=== PATIENT | female | born 1985 | race Caucasian/White ===

== ENCOUNTER → 2017-08-02 08:09 | Outpatient (CLI) | payer OTHER, SELFPAY | PROVIDERS: PCP Emergency Medicine; Visit Provider Emergency Medicine | DX: R50.9 Fever, unspecified (principal); R05 Cough ==

== ENCOUNTER → 2017-09-17 11:44 | Outpatient (CLI) | payer OTHER, SELFPAY ==
--- NOTE | 2017-09-17 11:45 | CT_ITS ---
CT abdomen pelvis wo con CLINICAL INDICATION: ITS.REASON: left flank pain, hematuria ORDERING PHYSICIAN: SHWETHA Ku PATIENT AGE: 32 years COMPARISON: 12/24/2016 TECHNIQUE: Axial images obtained with sagittal and coronal reformats. All CT scans at the facility use one or more dose reduction, viz: automated exposure control; ma/kV adjustment per patient size (including targeted exams where dose is matched to indication; i.e. head); or iterative reconstruction technique. PROCEDURE: Oral Contrast: None IV Contrast: None . FINDINGS: Lung bases are clear. The liver, gallbladder, spleen and pancreas have an unremarkable unenhanced CT appearance. There are punctate bilateral renal calculi measuring 3 mm in the mid and lower pole on the right and 3 mm in the lower along the left and 2 mm in left upper pole. No hydronephrosis. No ureteral calculi. No evidence of appendicitis or diverticulitis. There are bilateral tubal ligation clips present.. No pelvic mass or abnormal fluid collection or focal inflammatory change. No acute bony anomalies. IMPRESSION: Nonobstructing bilateral renal calculi Otherwise negative CT abdomen pelvis without contrast
== END ==
PROVIDERS: PCP Physician Assistant; Visit Provider Physician Assistant
DX: R10.9 Unspecified abdominal pain (principal)
CPT/HCPCS: 74176

== ENCOUNTER → 2018-01-28 08:09 | Outpatient (POV) | payer OTHER, SELFPAY | PROVIDERS: Visit Provider Dentist | DX: Z00.00 Encounter for general adult medical examination without abnormal findings (principal) ==

== ENCOUNTER → 2019-07-19 10:45 | Outpatient (CLI) | payer OTHER, SELFPAY ==
[2019-07-19 10:48] LABS: Adenovirus,PCR Not Detected (NotDetected); Bordetella Pertussis Not Detected (NotDetected); Chlamydophila Pneumoniae, PCR Not Detected (NotDetected); Coronavirus 229E Not Detected (NotDetected); Coronavirus NL63 Not Detected (NotDetected); Coronavirus OC43 Not Detected (NotDetected); Coronovirus HKU1,PCR Not Detected (NotDetected); Human Metapneumovirus Not Detected (NotDetected); Influenza A, PCR Not Detected (NotDetected); Influenza AH1, 2009 Not Detected (NotDetected); Influenza AH1, PCR Not Detected (NotDetected); Influenza AH3,PCR Not Detected (NotDetected); Influenza B, PCR Not Detected (NotDetected); Mycoplasma Pneumoniae, PCR Not Detected (NotDetected); Parainfluenza 1, PCR Not Detected (NotDetected); Parainfluenza 2, PCR Not Detected (NotDetected); Parainfluenza 3, PCR Not Detected (NotDetected); Parainfluenza 4, PCR Not Detected (NotDetected); Respiratory Syncytial Virus Not Detected (NotDetected); Rhinovirus/Enterovirus Not Detected (NotDetected)
== END ==
PROVIDERS: Visit Provider Internal Medicine Adolescent Medicine
DX: J02.9 Acute pharyngitis, unspecified (principal)
CPT/HCPCS: 87486; 87581; 87633; 87798

== ENCOUNTER → 2019-09-22 16:03 | Outpatient (CLI) | payer OTHER, SELFPAY ==
[2019-09-22 16:06] LABS: Microscopic, Urine URINE MICROSCOPIC (MICROSCOPIC)
[2019-09-22 16:25] LABS: Appearance,Urine CLEAR (Clear); Blood, Urine 2+ (Negative); Color,Urine YELLOW (Yellow); Glucose,Urine (UA) Negative (Negative); Ketones,Urine TRACE (Negative); Leukocyte Esterase,Urine Negative (Negative); Nitrate,Urine Negative (Negative); Protein,Urine Negative (Negative); Specific Gravity, Urine >= 1.030 (1.005-1.030)
[2019-09-22 16:45] LABS: Bilirubin,Urine Negative (Negative)
[2019-09-22 16:46] LABS: Bacteria,Urine Trace /lpf
== END ==
PROVIDERS: Visit Provider Nurse Practitioner
DX: N20.0 Calculus of kidney (principal)
CPT/HCPCS: 81001; 87086

== ENCOUNTER 2019-09-24 16:35 | Emergency (ER) | payer OTHER, SELFPAY ==
[2019-09-24 16:39] VITALS: BP 141/89; PULSE 106; RESP 18; TEMP 37.1; O2SAT 98; BMI 29.0
[2019-09-24 16:53] LABS: Appearance,Urine CLEAR (Clear); Bilirubin,Urine Negative (Negative); Blood, Urine 1+ (Negative); Color,Urine YELLOW (Yellow); Glucose,Urine (UA) Negative (Negative); Ketones,Urine Negative (Negative); Leukocyte Esterase,Urine Negative (Negative); Microscopic, Urine URINE MICROSCOPIC (MICROSCOPIC); Nitrate,Urine Negative (Negative); PH,Urine 6.5 (5.0-8.5); Protein,Urine Negative (Negative)
--- NOTE | 2019-09-24 16:55 | CT_ITS ---
PROCEDURE: CT ABDOMEN PELVIS WO CON CLINICAL INDICATION: R flank pain Right flank pain with nausea COMPARISON: ABDPELWO CT abdomen pelvis wo con from 09/17/2017 TECHNIQUE: Axial images obtained with sagittal and coronal reformats. All CT scans at the facility use one or more dose reduction, viz: automated exposure control, ma/kV adjustment per patient size (including targeted exams where dose is matched to indication, i.e. head), or iterative reconstruction technique. FINDINGS: LOWER THORAX: Small hiatal hernia ABDOMEN & PELVIS: Gallbladder is contracted with thickened wall. Stomach is mildly distended. Heterogeneous contents of the stomach which may be related to ingested products. The spleen, liver, adrenal glands, and pancreas have an unremarkable appearance. There are nonobstructing punctate bilateral renal calculi measuring up to 2-3 mm. No ureteral calculi. No hydronephrosis. No intestinal obstruction or free air. The appendix is not clearly delineated but no obvious signs of appendicitis. Bilateral tubal ligation clips. No pelvic mass or abnormal fluid collection. No acute bony anomaly. There is diastasis rectus IMPRESSION: 1. Nonobstructing bilateral renal calculi 2. Hiatal hernia with mild thickening of the distal esophagus nonspecific Dictated by: Leandro Flowers MD 09/25/2019 10:37 Electronically signed by Leandro Flowers MD in [place] 09/25/2019 10:37
[2019-09-24 17:01] LABS: Amorphous Sediment,Urine 1+ /lpf; WBC,Urine Occasional #/hpf (0-3)
[2019-09-24 17:04] LABS: Basophils % 0.3 % (0.1-2.0); Eosinophils % 0.4 % (0.1-12.0); Lymphocytes # 0.7 K/mm3 (0.7-4.5); Mean Corpuscular HGB Conc 34.1 g/dL (31.8-35.4); Mean Corpuscular Hemoglobin 32.6 pg (27.0-31.2); Mean Corpuscular Volume 95.6 fl (81-99); Monocytes # 0.1 K/mm3 (0.1-1.0); Monocytes % 0.9 % (1.7-9.3); Neutrophils # 9.3 K/mm3 (1.8-7.8); Neutrophils % 91.4 % (37.0-80.0); Platelet Count 246 K/mm3 (142-424); Red Cell Distribution Width 13.1 % (11.5-17.5); White Blood Count 10.2 K/mm3 (4.8-10.8)
[2019-09-24 17:05] LABS: MANUAL DIFFERENTIAL MANUAL DIFFERENTIAL (MANUAL DIFF)
[2019-09-24 17:09] LABS: Alanine Aminotransferase 20 U/L (12-78); Albumin Level 4.9 g/dl (3.5-5.0); Albumin/Globulin Ratio 1.5 (1.1-1.8); Alkaline Phosphatase 78 U/L (38-126); Anion Gap 14.4 mEq/L (5-15); Aspartate Amino Transferase 25 U/L (14-36); Bilirubin,Total 0.3 mg/dl (0.2-1.3); Blood Urea Nitrogen 12 mg/dl (7-17); Calcium 9.4 mg/dl (8.4-10.2); Carbon Dioxide 22 mmol/L (22.0-30.0); Chloride 104 mmol/L (98-107); Creatinine Clearance Estimated 116 mL/min (50-200); Estimated Glomerular Filt Rate 73 ml/min (>60); GFR (African American) 88 ML/MIN (>60); Globulin 3.3 g/dL (1.3-3.2); Glucose 119 mg/dl (74-100); Potassium 4.4 mmoL/L (3.5-5.1); Sodium 136 mmol/L (136-145); Total Protein,Serum 8.2 g/dl (6.3-8.2)
[2019-09-24 17:15] LABS: Lymphocytes % 4 % (10-50); Monocytes % 2 % (2-9); Neutrophils % 94 % (42-76); Platelet Estimate Normal; RBC Morphology Normal; Total Cells Counted 100
[2019-09-24 17:44] VITALS: BP 132/80; PULSE 80; RESP 16; O2SAT 96
[2019-09-24 18:15] VITALS: BP 140/77; PULSE 76; RESP 16; O2SAT 100
--- NOTE | 2019-09-24 18:15 | HMH.EDGENADL ---
ED Disposition Clinical Impression: Nephrolithiasis Disposition: Home, Self-Care Condition on Discharge: Good Instructions: DI for Acute Pain -- Adult Prescriptions: Cefdinir [Omnicef 300mg Capsule] 300 mg PO BID 10 Days #20 cap Transmission Status: Pending to [id number] Oxycodone HCl/Acetaminophen [Percocet 10-325 mg Tablet] 1 tab PO Q4H PRN 3 Days #15 tab PRN Reason: Breakthru Mild Pain Prescription Printed Referrals: Howard Gomez MD [Primary Care Provider] - - Critical Care Critical Care Time: No Attestation: On 09/24/19, the high probability of a clinically significant, sudden or life threatening deterioration of the following system(s) required my full and direct attention, intervention and personal management. The time I documented below is in addition to time spent performing reported procedures but includes the following listed in this critical care notation. Medical Decision Making - Medical Records Medical records reviewed: Yes: I reviewed the patient's medical records. - Jakub Inquiry Pt receiving controlled substance: No Vital Signs: 09/24/19 16:39 09/24/19 17:44 Temperature 98.7 F Temperature Source Oral Pulse Rate [Right Radial] 106 H 80 Respiratory Rate 18 16 Blood Pressure [Right Arm] 141/89 H 132/80 Blood Pressure Mean [Right Arm] 106 97 Blood Pressure Source [Right Arm] Automatic Cuff Automatic Cuff Blood Pressure Position [Right Arm] Sitting Sitting 02 Sat by Pulse Oximetry 98 96 Oxygen Delivery Method Room Air Room Air - Lab Data Lab results reviewed: Yes: I reviewed the patient's lab results. Lab Results 09/24/19 16:40: Urine Color Yellow, Urine Appearance Clear, Urine pH 6.5, Ur Specific [place] 1.020, Urine Protein Negative, Urine Glucose (UA) Negative, Urine Ketones Negative, Urine Blood 1+, Urine Nitrate Negative, Urine Bilirubin Negative, Urine Urobilinogen 2.0, Ur Leukocyte Esterase Negative, Urine RBC 10-20, Urine WBC Occasional, Ur Squamous Epith Cells 10-20, Amorphous Sediment 1+, Urine Bacteria None 09/24/19 16:50: WBC 10.2, RBC 4.60, Hgb 15.0, Hct 44.0, MCV 95.6, MCH 32.6 H, MCHC 34.1, RDW 13.1, Plt Count 246, MPV 8.0, Neut % (Auto) 91.4 H, Lymph % (Auto) 7.0 L, Gage % (Auto) 0.9 L, Eos % (Auto) 0.4, Baso % (Auto) 0.3, Neut # (Auto) 9.3 H, Lymph # (Auto) 0.7, Gage # (Auto) 0.1, Eos # (Auto) 0.0, Baso # (Auto) 0.0, Total Counted 100, Neutrophils % (Manual) 94 H, Lymphocytes % (Manual) 4 L, Monocytes % (Manual) 2, Platelet Estimate Normal, RBC Morphology Normal 09/24/19 16:50: Sodium 136, Potassium 4.4, Chloride 104, Carbon Dioxide 22, Anion Gap 14.4, BUN 12, Creatinine 0.90, Estimated Creat Clear 116, Estimated GFR 73, Est GFR ( Amer) 88, Glucose 119 H, Calcium 9.4, Total Bilirubin 0.3, AST 25, ALT 20, Alkaline Phosphatase 78, Total Protein 8.2, Albumin 4.9, Globulin 3.3 H, Albumin/Globulin Ratio 1.5 Result diagrams: 09/24/19 16:50 09/24/19 16:50 Orders (Tests/Meds): ED MEDICATIONS Generic Name Dose Route Start Last Admin Trade Name Freq PRN Reason Stop Dose Admin Sodium Chloride 1,000 mls @ 999 mls/hr 09/24/19 17:45 09/24/19 17:52 Sod Chlor 0.9% 1000ml Bag IV 09/24/19 18:45 999 mls/hr .Q1H1M GERALDINE Administration Discontinued Medications Generic Name Dose Route Start Last Admin Trade Name Freq PRN Reason Stop Dose Admin Acetaminophen/Codeine Phosphate 1 fam 09/24/19 18:09 Acetaminophen W/Codeine #3 Take Home Pack (6) PO 09/24/19 18:10 ONCE ONE Amlodipine Besylate 5 mg 09/24/19 17:48 09/24/19 17:52 Norvasc 5mg Tablet PO 09/24/19 17:49 5 mg ONCE ONE Administration Hyoscyamine 0.125 mg 09/24/19 17:48 09/24/19 17:52 Levsin 0.125mg Tablet PO 09/24/19 17:49 0.125 mg ONCE ONE Administration ORDERS Category Date Time Status CT abdomen pelvis wo con Stat Cat Scan 09/24/19 16:55 Taken - CT Data CT Scan: Abdomen, Pelvis Time Received: 18:[address] Reviewed: Yes: I have viewe
[2019-09-24 18:43] VITALS: BP 140/77; PULSE 76; RESP 16; TEMP 37.1; O2SAT 100
== END 2019-09-24 18:44 | disposition home or self-care (01) ==
PROVIDERS: Emergency Provider Family Medicine; PCP Internal Medicine Adolescent Medicine
DX: N20.0 Calculus of kidney (principal); F17.210 Nicotine dependence, cigarettes, uncomplicated; Z88.0 Allergy status to penicillin; Z88.2 Allergy status to sulfonamides
CPT/HCPCS: 74176; 80053; 81001; 85007; 85025; 96365; 99284

== ENCOUNTER 2020-01-26 18:35 | Emergency (ER) | payer OTHER, SELFPAY ==
[2020-01-26 18:42] VITALS: BP 141/87; PULSE 115; RESP 17; TEMP 37.1; O2SAT 99; BMI 29.0
--- NOTE | 2020-01-26 18:46 | HMH.EDGENADL ---
ED Disposition Clinical Impression: Trapezius muscle strain Qualifiers: Encounter type: initial encounter Laterality: left Qualified Code(s): S46.812A - Strain of other muscles, fascia and tendons at shoulder and upper arm level, left arm, initial encounter Disposition: Home, Self-Care Condition on Discharge: Good Instructions: DI for Cervical Muscle Strain Prescriptions: Cyclobenzaprine HCl [Flexeril 10mg tablet] 5 mg PO TID PRN #5 tab PRN Reason: spasm Prescription Printed Ketorolac Tromethamine [Toradol 10mg tablet] 10 mg PO Q6H PRN 4 Days #16 tab PRN Reason: pain Prescription Printed Referrals: Howard Gomez MD [Primary Care Provider] - 3 days - Critical Care Critical Care Time: No Attestation: On 01/26/20, the high probability of a clinically significant, sudden or life threatening deterioration of the following system(s) required my full and direct attention, intervention and personal management. The time I documented below is in addition to time spent performing reported procedures but includes the following listed in this critical care notation. Medical Decision Making - Medical Records Medical records reviewed: Yes: I reviewed the patient's medical records. - Jakub Inquiry Pt receiving controlled substance: No Vital Signs: 01/26/20 18:42 Temperature 98.7 F Temperature Source Oral Pulse Rate [Right Radial] 115 H Respiratory Rate 17 Blood Pressure [Right Arm] 141/87 H Blood Pressure Mean [Right Arm] 105 02 Sat by Pulse Oximetry 99 Oxygen Delivery Method Room Air Medical Decision Narrative: Suspect musculoskeletal etiology of her pain. She does not have any meningismus on exam and is afebrile with her last Advil at 1 PM this afternoon. Recommend addition of muscle relaxers to anti-inflammatories. Will prescribe Flexeril and Toradol. No radiculopathy or myelopathy. Encouraged to return for any change in symptoms, persistent headache, fever greater than 100.4. General Adult HPI - General Chief complaint: Ear Stated complaint: Neck pain, low grade fever, vomiting Time Seen by Provider: 01/26/20 18:47 Mode of Arrival: Ambulatory Source of Information: Patient Limitations: No Limitations Description of Symptoms (Recalled from ER Triage Doc. by RN): left ear pain that radiates into her head and her left shoulder. pt denies fever, pt c/o throat pain/burning also. - History of Present Illness HPI narrative: This is a 34-year-old female with no significant past medical history who presents to the emergency department for left-sided neck pain for the last 3 to 4 weeks. She has some pain relief with Advil, but pain returns. She states that whenever she bends her head all the way over to the left she will feel a catch and the pain will shoot down through her trapezius into her ear. She has felt generally uncomfortable and unwell throughout the entire month of December. No objective fever, but she did measure her temperature one time at home of 99.3/99.4. No posterior neck pain. No lateralizing motor or sensory changes. No trauma to the neck. - Related Data Previous Rx's Medication Instructions Recorded predniSONE [Prednisone 20mg 20 mg PO BID 5 Days #10 tab 08/16/17 Tab] fluticasone propionate 50 1 spray INTRANASAL BID #47.4 g 11/06/17 mcg/actuation nasal spray,suspension Cefdinir [Omnicef 300mg Capsule] 300 mg PO BID 10 Days #20 cap 09/24/19 Oxycodone HCl/Acetaminophen 1 tab PO Q4H PRN 3 Days #15 tab 09/24/19 [Percocet 10-325 mg Tablet] Cyclobenzaprine HCl [Flexeril 10mg 5 mg PO TID PRN #5 tab 01/26/20 tablet] Ketorolac Tromethamine [Toradol 10 mg PO Q6H PRN 4 Days #16 tab 01/26/20 10mg tablet] Allergies Allergy/AdvReac Type Severity Reaction Status Date / Time albuterol [From VENTOLIN HFA] Allergy Unknown -- Verified 01/26/20 18:46 Penicillins [PENICILLINS] Allergy Unknown -- Verified 01/26/20 18:46 Sulfa (Sulfonamide Allergy Unkn
[2020-01-26 19:53] VITALS: BP 119/73; PULSE 78; RESP 16; TEMP 37.2; O2SAT 98
== END 2020-01-26 19:56 | disposition home or self-care (01) ==
PROVIDERS: Emergency Provider Emergency Medicine; PCP Internal Medicine Adolescent Medicine
DX: S46.812A Strain of other muscles, fascia and tendons at shoulder and upper arm level, left arm, initial encounter (principal)
CPT/HCPCS: 99281

== ENCOUNTER → 2020-02-09 18:01 | Outpatient (CLI) | payer OTHER, SELFPAY ==
[2020-02-09 19:49] LABS: T4 (Thyroxine) 14.4 ug/dl (5.53-11.0)
[2020-02-09 20:03] LABS: Thyroid Stimulating Hormone 0.29 uIU/mL (0.465-4.68)
== END ==
PROVIDERS: Visit Provider Nurse Practitioner Family
DX: R53.83 Other fatigue (principal)
CPT/HCPCS: 84436; 84443

== ENCOUNTER → 2020-02-10 07:05 | Outpatient (CLI) | payer OTHER, SELFPAY ==
--- NOTE | 2020-02-10 07:05 | CT_ITS ---
PROCEDURE: CT SOFT TISSUE NECK WO CON CLINICAL HISTORY: neck pain, difficulty swallowing COMPARISON: No exams were available for comparison TECHNIQUE: Oral Contrast: None IV Contrast: None Axial images obtained with sagittal and coronal reformats. All CT scans at the facility use one or more dose reduction, viz: automated exposure control, ma/kV adjustment per patient size (including targeted exams where dose is matched to indication, i.e. head), or iterative reconstruction technique. FINDINGS: There is a 17 mm retention cyst in the floor the right maxillary sinus. Soft tissue evaluation is limited without IV contrast. The nasopharynx has an unremarkable appearance. There is slight asymmetric soft tissue prominence in the left oropharynx region. There is also some increased soft tissue prominence in the right piriform sinus. These areas could be related to nondistention. Direct visualization may confirm. The glottic region and subglottic area have an unremarkable appearance. There is some asymmetric prominence of the thyroid gland on the left. There are few scattered small cervical lymph nodes with no dominant adenopathy evident. Lung apices show no acute finding. Calcified granuloma is present in the left apex IMPRESSION: 1. Somewhat limited evaluation without IV contrast with slight increased soft tissue density in the left oral pharyngeal region and right hypo pharyngeal area possibly related to nondistention. Direct visualization and repeat exam with IV contrast with phonation may confirm. 2. Mild nodular contour of the lower pole left lobe of the thyroid gland which may be better evaluated with ultrasound if clinically warranted. Dictated by: Leandro Flowers MD 02/11/2020 11:06 Leandro Flowers MD in [place] 02/11/2020 11:06
== END ==
LOC: RAD 07:05
PROVIDERS: PCP Nurse Practitioner Family; Visit Provider Nurse Practitioner Family
DX: M54.2 Cervicalgia (principal)
CPT/HCPCS: 70490

== ENCOUNTER → 2020-02-11 10:15 | Outpatient (CLI) | payer OTHER, SELFPAY ==
[2020-02-12 15:06] LABS: Thyroid Peroxidase Antibodies 10 IU/mL (0-34)
== END ==
PROVIDERS: Visit Provider Nurse Practitioner Family
DX: R79.89 Other specified abnormal findings of blood chemistry (principal)
CPT/HCPCS: 86376

== ENCOUNTER → 2020-02-17 07:58 | Outpatient (CLI) | payer OTHER, SELFPAY ==
--- NOTE | 2020-02-17 07:58 | US_ITS ---
PROCEDURE: US THYROID CLINICAL INDICATION: THYROID NODULE COMPARISON: CT CT SOFT TISSUE NECK WO CON from 02/10/2020 FINDINGS: Right lobe: The right lobe measures 1.7 x 4.7 x 2.0 cm. There is homogeneous echogenicity of the right lobe. There is a slightly hypoechoic the structure just posterior to the lower right lobe of the thyroid measuring 2 cm in length superior to inferior dimension and showing homogeneous echogenicity and likely representing the right parathyroid gland. Left lobe: The left lobe measures 1.6 x 5.0 x 1.9 cm in shows homogeneous echogenicity except for a tiny hypoechoic lesion upper pole too small to definitely characterize but probably a small cyst measuring 0.4 by 0.3 x 0.2 cm. Isthmus: The isthmus is thickened measuring 0.7 cm. It shows homogeneous echogenicity however. Additional findings: IMPRESSION: Mild diffuse goiter with probable normal right parathyroid gland as described Dictated by: Dr. Ras Olivo MD 02/17/2020 10:35 Dr. Ras Olivo MD in [place] 02/17/2020 10:35
--- NOTE | 2020-02-17 07:58 | FL_ITS ---
PROCEDURE: FL BARIUM SWALLOW CLINICAL INDICATION: DYSPHAGIA, sensation of not in her throat, recent CT scan showing possible nodule in thyroid gland COMPARISON: No exams were available for comparison TECHNIQUE: In the upright position the patient was observed to swallow barium in both the AP and lateral view. The cervical esophagus was examined under fluoroscopy with images obtained. The patient was then placed prone in the right anterior oblique position and was observed to swallow barium with Valsalva technique . FLUOROSCOPY TIME: 1 minutes 44 seconds FINDINGS: The swallowing function and soft motility appear normal. Spot films of the cervical esophagus show no abnormality. There is a small to moderate size sliding hiatal hernia but there is no GE reflux seen during the study. IMPRESSION: Hiatal hernia is noted, normal appearing cervical esophagus Dictated by: Dr. Ras Olivo MD 02/17/2020 10:27 Dr. Ras Olivo MD in [place] 02/17/2020 10:27
== END ==
PROVIDERS: PCP Nurse Practitioner Family; Visit Provider Otolaryngology
DX: R13.10 Dysphagia, unspecified (principal); E04.1 Nontoxic single thyroid nodule
CPT/HCPCS: 74220; 76536

== ENCOUNTER → 2020-02-27 13:03 | Outpatient (CLI) | payer OTHER, SELFPAY ==
--- NOTE | 2020-02-27 13:04 | CT_ITS ---
PROCEDURE: CT SOFT TISSUE NECK WO/W CON CLINICAL HISTORY: dysphagia no palpable areas 75ml iso 370 COMPARISON: CT CT SOFT TISSUE NECK WO CON from 02/10/2020 US US THYROID from 02/17/2020 TECHNIQUE: Oral Contrast: None IV Contrast: None Axial images obtained with sagittal and coronal reformats. All CT scans at the facility use one or more dose reduction, viz: automated exposure control, ma/kV adjustment per patient size (including targeted exams where dose is matched to indication, i.e. head), or iterative reconstruction technique. FINDINGS: The nasopharyngeal region has an unremarkable appearance. The oropharynx and hypopharynx appear unremarkable. The epiglottis and glottic region is unremarkable. There is mild enlargement of the thyroid gland on both sides. No dominant nodule. The salivary glands have an unremarkable appearance. Scattered small nodes are present in the neck. No dominant adenopathy or abscess apparent. Lung apices are clear. No acute bony findings. IMPRESSION: Mildly enlarged thyroid gland otherwise negative CT of the neck without and with contrast Dictated by: Leandro Flowers MD 03/01/2020 12:25 Leandro Flowers MD in [place] 03/01/2020 12:25
== END ==
LOC: RAD 13:04
PROVIDERS: PCP Nurse Practitioner Family; Visit Provider Otolaryngology
DX: E04.9 Nontoxic goiter, unspecified (principal); R13.10 Dysphagia, unspecified
CPT/HCPCS: 70492; Q9967

== ENCOUNTER → 2020-07-29 08:01 | Outpatient (CLI) | payer OTHER, SELFPAY | PROVIDERS: PCP Internal Medicine Adolescent Medicine; Visit Provider Internal Medicine Adolescent Medicine | DX: Z20.822 Contact with and (suspected) exposure to COVID-19 (principal) | CPT/HCPCS: U0003 ==

== ENCOUNTER → 2020-08-30 10:49 | Outpatient (CLI) | payer OTHER, SELFPAY ==
[2020-08-30 10:54] VITALS: BMI 21.9
--- NOTE | 2020-08-30 10:55 | CA_ITS ---
APPROVED REPORT Bilateral Lower Extremity Venous Study for Credit Department Manager: SHAHEEN/AURELIA Indications SWELLING LEFT LEG with pain x 2 weeks Vein Imaging CFV (L): compressive, spontaneous, phasic, augmentation SFJ (L): compressive, spontaneous, phasic, augmentation FEM (L): compressive, spontaneous, phasic, augmentation POP (L): compressive, spontaneous, phasic, augmentation DFV (L): compressive, spontaneous, phasic, augmentation PTV (L): compressive, spontaneous, phasic, augmentation GSV (L): compressive, spontaneous, phasic, augmentation SSV (L): compressive, spontaneous, phasic, augmentation Peroneals (L):compressive, spontaneous, phasic, augmentation GAS (L): compressive, spontaneous, phasic, augmentation Findings Color flow duplex demonstrates no evidence of DVT of the following left lower extremity Veins:Common Femoral Vein, Femoral Vein, Popliteal Vein, Posterior Tibial Veins, Peroneal Veins. Negative for DVT. Conclusion Negative for DVT. Electronically signed by : Leandro Flowers MD 08/30/2020 15:16:07
== END ==
PROVIDERS: PCP Nurse Practitioner Family; Visit Provider Nurse Practitioner Family
DX: M79.662 Pain in left lower leg (principal); R60.0 Localized edema
CPT/HCPCS: 93971

== ENCOUNTER → 2020-11-02 14:07 | Outpatient (CLI) | payer OTHER, SELFPAY ==
[2020-11-02 15:21] LABS: Barbiturates Screen,Urine Negative ng/ml (<200)
[2020-11-02 15:22] LABS: Benzodiazepines Screen,Urine Negative ng/ml (<200)
[2020-11-02 15:23] LABS: Amphetamine/Metha Screen,Urine Negative ng/ml (<1000); Cannabinoid Screen,Urine Negative ng/ml (<50)
[2020-11-02 15:24] LABS: Cocaine Screen,Urine Negative ng/ml (<300)
[2020-11-02 15:25] LABS: Methadone Screen,Urine Negative ng/ml (<300); Opiate Screen,Urine Negative ng/ml (<300)
[2020-11-02 15:26] LABS: Phencyclidine Screen,Urine Negative ng/ml (<25)
== END ==
PROVIDERS: Visit Provider Nurse Practitioner Family
DX: Z02.83 Encounter for blood-alcohol and blood-drug test (principal)
CPT/HCPCS: 80305

== ENCOUNTER → 2022-01-24 11:52 | Outpatient (CLI) | payer BC, SELFPAY ==
[2022-01-24 13:19] LABS: Free T4 (Free Thyroxine) 1.08 ng/dl (0.78-2.19)
[2022-01-24 13:33] LABS: Thyroid Stimulating Hormone 0.77 uIU/mL (0.465-4.68)
== END ==
PROVIDERS: PCP Nurse Practitioner Family; Visit Provider Otolaryngology
DX: E05.90 Thyrotoxicosis, unspecified without thyrotoxic crisis or storm (principal); K21.9 Gastro-esophageal reflux disease without esophagitis; Q31.8 Other congenital malformations of larynx
CPT/HCPCS: 36415; 84439; 84443

== ENCOUNTER → 2022-01-24 12:07 | Outpatient (CLI) | payer BC, SELFPAY ==
--- NOTE | 2022-01-24 12:07 | US_ITS ---
FINAL REPORT CLINICAL HISTORY: thyroid abnormal, enlarged COMPARISON: 02/17/2020 FINDINGS: The thyroid is enlarged. The right lobe of the thyroid measures 5.4 x 2.2 x 1.8 cm. The left lobe of the thyroid measures 5.5 by 1.5 x 1.7 cm. There is a cyst in the left thyroid lobe measuring 3 x 2 x 3 mm consistent with TI-RADS category 1. There is a hypoechoic mass posterior to the right thyroid lobe measuring 21 x 9 x 12 mm, may represent an enlarged parathyroid. This was present on the prior. No significant changes identified. IMPRESSION: Left thyroid lobe cyst consistent with TI-RADS category 1. Findings may represent an enlarged parathyroid, not significantly changed since prior. Reviewed, Interpreted and Dictated by Samuel Hernandez III, MD Transcribed by Abida Santiago Authenticated and [facility]
== END ==
LOC: RAD 12:07
PROVIDERS: PCP Nurse Practitioner Family; Visit Provider Otolaryngology
DX: E05.90 Thyrotoxicosis, unspecified without thyrotoxic crisis or storm (principal)
CPT/HCPCS: 76536

== ENCOUNTER → 2022-06-30 07:38 | Outpatient (CLI) | payer OTHER, SELFPAY ==
--- NOTE | 2022-06-30 07:38 | US_ITS ---
FINAL REPORT CLINICAL HISTORY: RUQ pain FINDINGS: Sonographic images of the right upper quadrant were obtained. The pancreas is normal. The liver has an unremarkable appearance. There is a large gallstone in the gallbladder. There is no evidence of biliary ductal dilatation.The common duct measures 3 mm. Limited images of the right kidney are unremarkable. IMPRESSION: Large gallstone, otherwise unremarkable exam. Reviewed, Interpreted and Dictated by Samuel Hernandez III, MD Transcribed by Rosa Jacobs Authenticated and . [facility]
== END ==
PROVIDERS: PCP Nurse Practitioner Family; Visit Provider Surgery
DX: R10.11 Right upper quadrant pain (principal)
CPT/HCPCS: 76705

== ENCOUNTER 2022-07-04 06:22 | Day surgery (SDC) | payer OTHER, SELFPAY ==
[2022-07-02 17:09] VITALS: BMI 26.9
[2022-07-04 07:17] VITALS: BP 148/80; PULSE 89; RESP 17; TEMP 36.9; O2SAT 99
[2022-07-04 07:20] LABS: Urine Pregnancy, HCG Qual. Negative (Negative)
--- NOTE | 2022-07-04 07:26 | EXP.ANES.CKL ---
[facility] Disclaimer: The information contained in this section may have been updated after the patient was seen, as this information can be updated by other users. Medical History Arytenoid anomaly Enlarged thyroid GERD (gastroesophageal reflux disease) Hyperthyroidism Obesity Surgical History History of delivery Family History Other Cancer Coronary artery disease Social History Smoking Status: Current every day smoker tobacco type: cigarettes packs per day: 1 alcohol intake: never substance use type: denies use current occupational status: employed Travel in the last 8 weeks: None household members: family housing: house [facility] Anesthesia Checklist Patient Identification Patient Identification: Arm Band and Verbal (Name & ) Structural Data Admitted From: Home Planned Operative Procedure/s: EGD Consent for Planned Operative Procedure(s) Verified: Yes NPO Status Verified Time NPO: 00:00 Chart Verification Results Verified: HCG Airway Assessment C-Spine Mobility Assessed: Yes TMJ Mobility Assessed: Yes Dentition: Good Dentition Neurological Assessment Level of Consciousness: Awake Hx Seizures: No Numbness or tingling in extremities: No Anesthesia Plan Anesthesia Risk discussed: Yes Anesthesia Plan: Verified ASA Class: II Anesthesia Type: MAC
[2022-07-04 07:36] VITALS: O2SAT 99
--- NOTE | 2022-07-04 07:52 | HMH.SCOPE ---
Procedure: Date: 07/04/22 Patient Date of :: 1985 Procedure Performed:: Esophagogastroduodenoscopy with biopsy Indications:: Patient is a 37-year-old female referred for possible upper endoscopy.? She has a relatively longstanding history of symptoms of probable acid reflux.? She did previously undergo a barium swallow on 02/17/2020 which revealed hiatal hernia with a normal-appearing cervical esophagus.? She has seen ENT for some cervical dysphagia type symptoms.? Patient states that she had COVID in March of this year and had developed some significant upper abdominal pain during that time.? She had been on Nexium.? In February 2022 she had COVID once again and once again had developed some significant epigastric and bilateral upper quadrant pain.? This required increasing to high-dose omeprazole along with famotidine.? She does have some right-sided, right upper quadrant, discomfort.? There is some nausea.? She had an episode where she had drank some coffee with creamer and had severe pain.? Given the previous imaging finding showing hiatal hernia it was felt that possible endoscopy would be warranted prior to consideration for potential antireflux surgery.? Patient does not necessarily desire any antireflux procedure.? She had not had her gallbladder evaluated. Given her prior imaging and symptoms I planned to proceed with EGD with biopsies. I did order a gallbladder ultrasound in the interim. This reveals large gallstone . I reviewed the images. This measures 1.2 cm. Performing Provider:: Samuel Hardin MD Referring Provider:: Arti Fitzgerald Sedation:: MAC sedation Procedure:: Patient was taken to endoscopy procedure room. She was positioned in lateral decubitus position. Adequate intravenous sedation was achieved with anesthesia titration of propofol. Olympus endoscope was inserted via the oropharynx. She had some minor cricopharyngeal spasm. Esophagus overall appeared relatively unremarkable. Gastroesophageal junction was encountered at approximately 35 cm. Stomach was cannulated and insufflated. There was mild gastropathy. Retroflexion revealed moderate hiatal hernia measuring about 5 or 6 cm. Pylorus was traversed. Duodenum appeared unremarkable. Endoscope was withdrawn into the gastric lumen and gastric biopsy was obtained. There were a couple of likely fundic gland polyps which were biopsied. A couple of biopsies were obtained at the gastroesophageal junction and a biopsy was obtained mid and distal esophagus. Findings:: Gastroesophageal junction at 35 cm Moderate sliding hiatal hernia (5 to 6 cm) Fundic gland polyps Diffuse mild nonerosive gastropathy Recommendations:: Patient likely does have some degree of reflux symptoms secondary to hiatal hernia however her symptoms of appreciable epigastric and right upper quadrant pain with some nausea may be attributed to her gallstone. I will have her return to the office to follow-up on the biopsy results. May need cholecystectomy. Complications:: None immediately apparent Estimated blood obtained (mL): 1
[2022-07-04 07:54] VITALS: BP 90/51; PULSE 82; RESP 18; TEMP 36.3; O2SAT 96
[2022-07-04 08:04] VITALS: BP 90/54; PULSE 79; RESP 16; O2SAT 96
[2022-07-04 08:14] VITALS: BP 101/63; PULSE 71; RESP 16; O2SAT 97
[2022-07-04 08:24] VITALS: BP 105/64; PULSE 73; RESP 17; O2SAT 97
== END 2022-07-04 08:44 | disposition home or self-care (01) ==
PROVIDERS: PCP Nurse Practitioner Family; Visit Provider Surgery
PROC: 0DJ08ZZ Inspection of Upper Intestinal Tract, Via Natural or Artificial Opening Endoscopic (ICD-10-PCS; CPT 43235; principal; 2022-07-04 07:30)
DX: R10.13 Epigastric pain (principal); K21.9 Gastro-esophageal reflux disease without esophagitis; K31.7 Polyp of stomach and duodenum; K44.9 Diaphragmatic hernia without obstruction or gangrene; K31.9 Disease of stomach and duodenum, unspecified; F17.210 Nicotine dependence, cigarettes, uncomplicated
CPT/HCPCS: 43239; 81025; J2704

== ENCOUNTER → 2022-07-18 14:02 | Outpatient (CLI) | payer OTHER, SELFPAY ==
--- NOTE | 2022-07-18 14:21 | XR_ITS ---
FINAL REPORT CLINICAL HISTORY: CERVICALGIA FINDINGS: CERVICAL SPINE 5 views were obtained. There is no acute fracture. There is straightening of the normal cervical curvature which could be due to positioning or muscle spasm. The disc spaces are preserved. There is no soft tissue abnormality. IMPRESSION: No acute bony abnormality. Straightening of the normal cervical curvature which could be due to positioning or muscle spasm. Reviewed, Interpreted and Dictated by Samuel Hernandez III, MD Transcribed by Vera Robles Authenticated and [facility]
== END ==
PROVIDERS: PCP Nurse Practitioner Family; Visit Provider Nurse Practitioner Family
DX: M54.2 Cervicalgia (principal)
CPT/HCPCS: 72050

== ENCOUNTER → 2022-10-10 14:26 | Outpatient (CLI) | payer OTHER, SELFPAY ==
--- NOTE | 2022-10-10 14:30 | CT_ITS ---
FINAL REPORT TECHNIQUE: Thin section axial images were obtained from the lung bases to the pubic symphysis without IV contrast. Coronal reconstruction images were obtained from the axial data. Exam was performed using dose reduction technique. CLINICAL HISTORY: ACUTE UTI, KIDNEY STONES COMPARISON: 09/24/2019 FINDINGS: Bilateral nonobstructing renal stones are present, the largest on the left side measuring 3 mm in diameter, and on the right side 5 mm in diameter. The appearance is unchanged since the prior CT of 2019. There is no evidence of an obstructing stone, and no hydronephrosis is present. The gallbladder is present. The liver is mildly enlarged without evidence of a focal lesion. There is no evidence of small bowel obstruction. The appendix is not visualized, but there are no secondary signs of appendicitis. GI tract is without acute abnormality. There is no lymphadenopathy or ascites. No acute osseous abnormality is identified. IMPRESSION: Multiple bilateral renal stones, nonobstructing, are present and stable since the prior CT of 2019. No evidence of ureteral obstruction or hydronephrosis is seen. The liver is mildly enlarged without evidence of a focal lesion. Reviewed, Interpreted and Dictated by Isabella Coelho MD Transcribed by Sloane Brand Authenticated and [facility]
== END ==
LOC: RAD 14:26
PROVIDERS: PCP Nurse Practitioner Family; Visit Provider Nurse Practitioner Family
DX: N30.91 Cystitis, unspecified with hematuria (principal); N39.0 Urinary tract infection, site not specified
CPT/HCPCS: 74176

== ENCOUNTER → 2022-10-21 09:35 | Outpatient (CLI) | payer OTHER, SELFPAY ==
[2022-10-21 10:15] LABS: Urine Pregnancy, HCG Qual. Negative (Negative)
[2022-10-21 10:19] LABS: Basophils % 0.6 % (0.1-2.0); Eosinophils % 0.4 % (0.1-12.0); Hematocrit 41.5 % (37.0-47.0); Hemoglobin 12.9 g/dL (12.2-16.2); Lymphocytes # 1.7 K/mm3 (0.7-4.5); Lymphocytes % 24.3 % (10-50); Mean Corpuscular HGB Conc 31.1 g/dL (31.8-35.4); Mean Corpuscular Hemoglobin 29.8 pg (27.0-31.2); Mean Corpuscular Volume 95.5 fl (81-99); Mean Platelet Volume 8.1 fl (7.4-10.4); Monocytes # 0.3 K/mm3 (0.1-1.0); Neutrophils # 4.8 K/mm3 (1.8-7.8); Neutrophils % 70.6 % (37.0-80.0); Platelet Count 244 K/mm3 (142-424); Red Blood Count 4.34 M/mm3 (4.20-5.40); Red Cell Distribution Width 12.6 % (11.5-17.5); White Blood Count 6.8 K/mm3 (4.8-10.8)
[2022-10-21 10:27] LABS: Alanine Aminotransferase 27 U/L (12-78); Albumin Level 4.3 g/dl (3.5-5.0); Albumin/Globulin Ratio 1.6 (1.1-1.8); Alkaline Phosphatase 76 U/L (38-126); Aspartate Amino Transferase 27 U/L (14-36); Bilirubin,Total 0.4 mg/dl (0.2-1.3); Blood Urea Nitrogen 11 mg/dl (7-17); Carbon Dioxide 27 mmol/L (22.0-30.0); Chloride 109 mmol/L (98-107); Estimated Glomerular Filt Rate 95 ml/min (>60); GFR (African American) 115 ML/MIN (>60); Globulin 2.7 g/dL (1.3-3.2); Glucose 86 mg/dl (74-100); Sodium 142 mmol/L (136-145)
== END ==
PROVIDERS: PCP Nurse Practitioner Family; Visit Provider Surgery
DX: Z01.812 Encounter for preprocedural laboratory examination (principal); K80.20 Calculus of gallbladder without cholecystitis without obstruction
CPT/HCPCS: 36415; 80053; 81025; 85025

== ENCOUNTER 2022-10-27 06:09 | Day surgery (SDC) | payer OTHER, SELFPAY ==
[2022-10-23 14:04] VITALS: BMI 26.6
[2022-10-27] VITALS (12 sets, daily range): BP systolic 117–146; BP diastolic 74–87; PULSE 60–94; RESP 14–20; TEMP 36.4–43; O2SAT 98–100
--- NOTE | 2022-10-27 07:14 | EXP.GEN.HP ---
HPI HPI HPI: Patient presents for cholecystectomy. She has a relatively longstanding history of symptoms of probable acid reflux. She did previously undergo a barium swallow on 02/17/2020 which revealed hiatal hernia with a normal-appearing cervical esophagus.? She has seen ENT for some cervical dysphagia type symptoms.? She states that she is dependent on proton pump inhibitors to control her reflux symptoms. She had some significant upper abdominal pain earlier this year.? She had been on Nexium.? She describes some significant epigastric and bilateral upper quadrant pain.? This required increasing to high-dose omeprazole along with famotidine.? She does have some right-sided, right upper quadrant, discomfort.? There is some nausea.? She had an episode where she had drank some coffee with creamer and had severe pain.? Given the previous imaging finding showing hiatal hernia it was felt that possible endoscopy would be warranted prior to consideration for potential antireflux surgery.? She had not had her gallbladder evaluated initially at the time of my initial consultation for EGD.? Given her prior imaging and symptoms I planned to proceed with EGD with biopsies.? I did order a gallbladder ultrasound in the interim.? This revealed large gallstone .? I reviewed the images.? This measures 1.2 cm. She underwent upper endoscopy on 07/04/2022 and she was found to have gastroesophageal junction at 35 cm, small to moderate hiatal hernia, fundic gland polyps and some mild nonerosive gastropathy. Gastric biopsy revealed benign gastric mucosa, gastric polyp was consistent with fundic gland polyp on pathology, GE junction biopsy negative for intestinal metaplasia, distal esophageal biopsy benign normal squamous mucosa. I felt that it was possible that some of her symptoms were secondary to gallbladder as well as hiatal hernia. She was evaluated by Dr. Farrukh Tovar at [facility] for possible antireflux procedure. He did a repeat EGD on 09/12/2022 and she was noted to have a sliding type I paraesophageal hernia. She states that her was informed that she would not require surgery on the hiatal hernia. However, she had been scheduled for esophageal functional testing as well as gastric emptying scan. She states that after her endoscopy she had severe abdominal pain and diarrhea. She has had symptoms of ongoing postprandial bloating and belching. [facility] Disclaimer: The information contained in this section may have been updated after the patient was seen, as this information can be updated by other users. Medical History Arytenoid anomaly Enlarged thyroid GERD (gastroesophageal reflux disease) Hx of renal calculi Hyperthyroidism Obesity Surgical History History of delivery History of esophagogastroduodenoscopy (EGD) History of renal stent History of wisdom tooth extraction, class IV edentulism Family History Other Cancer Coronary artery disease Social History (Updated 10/27/22 @ 06:35 by Beatriz Navarro RN) Smoking Status: Former smoker quit date: 05/23/22 alcohol intake: never substance use type: denies use current occupational status: employed Travel in the last 8 weeks: None household members: family housing: house lives independently: No marital status: education level: high school service: No mcc: No caffeine: No special rocio needs: No agree to transfusion: No do you feel safe at home: Yes victim of physical abuse: No victim of emotional abuse: No victim of sexual abuse: No would you like helpful sources: No Review of Systems Review of Systems Review of systems:: pertinent systems reviewed and negative unless documented below Meds Home Medications and Allergies Home M
--- NOTE | 2022-10-27 07:32 | P.PNANES_ITS ---
[facility] Disclaimer: The information contained in this section may have been updated after the patient was seen, as this information can be updated by other users. Medical History Arytenoid anomaly Enlarged thyroid GERD (gastroesophageal reflux disease) Hx of renal calculi Hyperthyroidism Obesity Surgical History History of delivery History of esophagogastroduodenoscopy (EGD) History of renal stent History of wisdom tooth extraction, class IV edentulism Family History Other Cancer Coronary artery disease Social History (Updated 10/27/22 @ 06:35 by Beatriz Navarro RN) Smoking Status: Former smoker quit date: 05/23/22 alcohol intake: never substance use type: denies use current occupational status: employed Travel in the last 8 weeks: None household members: family housing: house lives independently: No marital status: education level: high school service: No assisted: No caffeine: No special rocio needs: No agree to transfusion: No do you feel safe at home: Yes victim of physical abuse: No victim of emotional abuse: No victim of sexual abuse: No would you like helpful sources: No [facility] Anesthesia Checklist Patient Identification Patient Identification: Arm Band Structural Data Admitted From: Home Planned Operative Procedure/s: Laparoscopic Cholecystectomy Consent for Planned Operative Procedure(s) Verified: Yes Verified Documents: Surgical Consent and History and Physical NPO Status Verified Time NPO: 00:00 Additional verifications Anesthesia Reactions: No Hx Blood Transfusions: No Blood Transfusion Reaction: No Airway Assessment Mallampati Score:: Class II C-Spine Mobility Assessed: Yes TMJ Mobility Assessed: Yes Dentition: Good Dentition Neurological Assessment Level of Consciousness: Awake and Alert Anesthesia Plan Anesthesia Risk discussed: Yes Anesthesia Plan: Verified ASA Class: I Anesthesia Type: General
--- NOTE | 2022-10-27 08:45 | EXP.OP.NOTE ---
Date of procedure: 10/27/22 Pre-op Diagnosis:: Symptomatic gallstones Post-op Diagnosis:: Same Procedure performed:: Laparoscopic cholecystectomy Surgeon:: Samuel Hardin MD CHAR FILTER OPERATOR:: Yogi Haque Anesthesia: GETRuddy Estimated blood loss (mL): 15 Clinical Note:: Patient presents for cholecystectomy. She has a relatively longstanding history of symptoms of probable acid reflux. She did previously undergo a barium swallow on 02/17/2020 which revealed hiatal hernia with a normal-appearing cervical esophagus.? She has seen ENT for some cervical dysphagia type symptoms.? She states that she is dependent on proton pump inhibitors to control her reflux symptoms. She had some significant upper abdominal pain earlier this year.? She had been on Nexium.? She describes some significant epigastric and bilateral upper quadrant pain.? This required increasing to high-dose omeprazole along with famotidine.? She does have some right-sided, right upper quadrant, discomfort.? There is some nausea.? She had an episode where she had drank some coffee with creamer and had severe pain.? Given the previous imaging finding showing hiatal hernia it was felt that possible endoscopy would be warranted prior to consideration for potential antireflux surgery.? She had not had her gallbladder evaluated initially at the time of my initial consultation for EGD.? Given her prior imaging and symptoms I planned to proceed with EGD with biopsies.? I did order a gallbladder ultrasound in the interim.? This revealed large gallstone .? I reviewed the images.? This measures 1.2 cm. She underwent upper endoscopy on 07/04/2022 and she was found to have gastroesophageal junction at 35 cm, small to moderate hiatal hernia, fundic gland polyps and some mild nonerosive gastropathy. Gastric biopsy revealed benign gastric mucosa, gastric polyp was consistent with fundic gland polyp on pathology, GE junction biopsy negative for intestinal metaplasia, distal esophageal biopsy benign normal squamous mucosa. I felt that it was possible that some of her symptoms were secondary to gallbladder as well as hiatal hernia. She was evaluated by Dr. Farrukh Tovar at [facility] for possible antireflux procedure. He did a repeat EGD on 09/12/2022 and she was noted to have a sliding type I paraesophageal hernia. She states that her was informed that she would not require surgery on the hiatal hernia. However, she had been scheduled for esophageal functional testing as well as gastric emptying scan. She states that after her endoscopy she had severe abdominal pain and diarrhea. She has had symptoms of ongoing postprandial bloating and belching. Patient wished to pursue cholecystectomy. I did discuss the case with Dr. Tovar and he felt it appropriate to proceed with cholecystectomy and if necessary at a later date, in the future, she could still undergo antireflux procedure if needed. Operative findings:: She had a distended gallbladder with omental adhesions. She did have findings of mild hepatomegaly and probable fatty infiltration of the liver. There was a moderate gallstone in the gallbladder. She had findings consistent with beginnings of an umbilical hernia. Operative note:: Patient was taken to the operating room. She was given preoperative intravenous antibiotics. In the operating room she was placed in a supine position. General anesthesia was induced via endotracheal tube. Abdomen was prepped and draped in the standard surgical fashion. Subumbilical skin incision was made and while performing abdominal wall lift Veress needle was inserted. Initially insufflation pressures were appropriate but then there were some elevation of pressures. Veress needle was repositioned. There was good insufflation pressures and flow. 11 mm optical trocar was inserted to the umbilicus. There were findings of beginnings of an umbilical hernia. Laparoscopic surveillance was carried out. She was positioned in rever
--- NOTE | 2022-10-27 08:53 | EXP.ANES.I ---
[facility] Anesthesia Record Part I Anesthesia Record I Intake, IV Amount: 1,300 Hydration:: Adequate Estimated blood loss (mL): 10 Urine output (mL): 0 Blood Products used (#): none Blood Pressure: 145/85 SaO2: 99 Pulse Rate: 94 Airway Patency:: Patent Respiratory Rate: 16 Temperature: 98.3 F Pain scale (0-10): 0 Nausea:: Yes Vomiting:: No Patient is:: Drowsy and Stable Stable to PACU at:: 08:55
--- NOTE | 2022-10-27 13:36 | P.PNANES_ITS ---
[facility] Anesthesia Record Part II Anesthesia Record Part II Discharge Time: 09:35 Destination: Surgical Day Care (OP Surgery) PACU nurse assessment reviewed?: Yes Patient Condition:: Good Anesthesia Complications:: None Swallowing reflex intact?: Yes Airway Patency: Patent Cyanosis?: No Blood Pressure: 143/76 SaO2: 98 Respiratory Rate: 14 Pulse Rate: 68 Temperature: 97.5 F Mental Status: Alert & Oriented Pain level:: 4 Nausea and/or vomitting:: None Intake, IV Amount: 0 Hydration: Adequate
== END 2022-10-27 10:15 | disposition home or self-care (01) ==
PROVIDERS: PCP Nurse Practitioner Family; Visit Provider Surgery
PROC: 0FT44ZZ Resection of Gallbladder, Percutaneous Endoscopic Approach (ICD-10-PCS; CPT 47562; principal; 2022-10-27 07:30)
DX: K80.10 Calculus of gallbladder with chronic cholecystitis without obstruction (principal); K44.9 Diaphragmatic hernia without obstruction or gangrene; R16.0 Hepatomegaly, not elsewhere classified
CPT/HCPCS: 47562; 96374; J2405

== ENCOUNTER 2022-12-21 14:54 | Emergency (ER) | payer OTHER, SELFPAY ==
[2022-12-21 15:05] VITALS: BP 140/82; PULSE 80; RESP 19; TEMP 36.6; O2SAT 100; BMI 27.1
[2022-12-21 15:14] LABS: Coronavirus 19, PCR Not Detected (NotDetected); Influenza A, PCR Not Detected (NotDetected); Influenza B, PCR Not Detected (NotDetected)
--- NOTE | 2022-12-21 15:17 | EXP.UTC ---
Discharge Plan Disposition Patient Disposition: Home, Self-Care Condition: Good Prescriptions Prescriptions: New ondansetron 4 mg Tablet,Disintegrating 4 mg PO Q8H PRN (Reason: Nausea) Qty: 20 0RF No Action loratadine 10 mg tablet 10 mg PO DAILY fluticasone propionate 50 mcg/actuation spray,suspension 2 spray intranasal DAILY famotidine 40 mg tablet 40 mg PO DAILY Qty: 90 3RF zinc acetate 25 mg (zinc) capsule 25 mg PO DAILY L norgest/e.estradiol-e.estrad [Daysee] 0.15 mg-30 mcg (84)/10 mcg (7) tablets,dose pack,3 month 1 tab PO DAILY Qty: 182 4RF omega-3 fatty acids Capsule 500 mg PO DAILY Multi For Her 18 mg iron-600 mcg-80 mcg Tablet 1 tab PO DAILY Azo Cranberry 250 mg Tablet,Chewable 250 mg PO DAILY omeprazole 40 mg capsule,delayed release(DR/EC) 40 mg PO DAILY Referrals Follow up/Referrals: Irvin Fitzgerald APRN [Primary Care Provider] - See instructions Activity Restrictions/Add. Instructions Additional Instructions/Restrictions: *Monitor Temp, Over the counter Motrin or Tylenol as directed/as needed Tylenol every 4 hours and Motrin every 6 hours (as long as your family doctor has told you that you can take it) for fever or pain. and straight to ER if unable to lower temp less than 101.0 after medication given *Warm salt water gargles may help to soothe the throat *Throat Lozenges? *Warm fluids like tea with honey may help to soothe the throat? *Sleep elevated *Humidifier/Vaporizer Follow up IMMEDIATELY for new or worsening symptoms or no Noticeable improvement over the next 48-72 hours. 911 for difficulty breathing or swallowing Clinical Impressions Clinical Impression: Viral syndrome Instructions Patient Instructions: DI for Nausea -- Adult, DI for Viral Syndrome Discharge ED Provider: Ivana Mead [facility] HPI General Stated complaint: fatigue, stomach pain Mode of Arrival: Ambulatory Source of Information: Patient Limitations: No Limitations Time Seen by Provider: 12/21/22 15:19 Description of Symptoms (Recalled from Triage Doc. by RN): PATIENT C/O HEADACHE, NAUSEA, AND FATIGUE X 2 DAYS HEENT Symptoms (Recalled from RN notes): Yes Resp Symptoms (Recalled from RN notes): No Skin Symptoms (Recalled from RN notes): No MS Symptoms (Recalled from RN notes): No Functional Status (Recalled from RN notes): WNL History of Present Illness Provider Complaint: Patient states that she has been having headache, fatigue, nausea States that she feels like she did when she had COVID states that she wanted to get tested for COVID Related Data Home Medications Medication Instructions Recorded Confirmed fluticasone propionate 50 2 spray intranasal DAILY Allergies 12/24/21 12/18/22 mcg/actuation nasal spray,suspension loratadine 10 mg tablet 10 mg PO DAILY Allergies 12/24/21 12/18/22 omeprazole 40 mg capsule,delayed 40 mg PO DAILY GERD 07/02/22 12/18/22 release cranberry fruit concentrate 250 mg 250 mg PO DAILY Supplement 10/23/22 12/18/22 chewable tablet (Azo Cranberry) oczevjpw-zjdoxlc-rhda-iron fum 18 1 tab PO DAILY Supplement 10/23/22 12/18/22 mg-folic 600 mcg-vit K 80 mcg tablet (Multi For Her) omega-3 fatty acids 500 mg PO DAILY Supplement 10/23/22 12/18/22 zinc acetate 25 mg (zinc) capsule 25 mg PO DAILY 12/18/22 12/18/22 Previous Rx's Medication Instructions Recorded famotidine 40 mg tablet 40 mg PO DAILY take before bed #90 01/29/22 tabs L norgest/E estradiol-E estrad 1 tab PO DAILY control #182 12/18/22 0.15 mg-30 mcg (84)/10 mcg(7) tabs tabs,3mos (Daysee) ondansetron 4 mg disintegrating 4 mg PO Q8H PRN Nausea #20 tabs 12/21/22 tablet Allergies Allergy/AdvReac Type Severity Reaction Status Date / Time Penicillins [PENICILLINS] Allergy Unknown -- Verified 12/18/22 10:43 Sulfa (Sulfonamide Allergy Unknown -- Verified 12/18/22 10:43 Antibiotics) [SULFA
[2022-12-21 15:26] VITALS: BP 140/82; PULSE 80; RESP 19; TEMP 36.6; O2SAT 100
== END 2022-12-21 15:50 | disposition home or self-care (01) ==
PROVIDERS: Emergency Provider Nurse Practitioner; PCP Nurse Practitioner Family
DX: R51.9 Headache, unspecified (principal); R11.0 Nausea; R53.83 Other fatigue; B34.9 Viral infection, unspecified; E05.00 Thyrotoxicosis with diffuse goiter without thyrotoxic crisis or storm; K21.9 Gastro-esophageal reflux disease without esophagitis; Z87.891 Personal history of nicotine dependence
CPT/HCPCS: 87636; 99204; 99212; G0463

== ENCOUNTER 2023-09-03 16:49 | Outpatient (CLI) | payer OTHER, SELFPAY ==
[2023-09-03 18:15] LABS: Ferritin 52.6 ng/ml (6.24-137)
== END 2023-09-03 23:59 | disposition home or self-care (01) ==
LOC: LAB 16:49
PROVIDERS: PCP Nurse Practitioner Family; Visit Provider Obstetrics & Gynecology
DX: E34.8 Other specified endocrine disorders (principal)
CPT/HCPCS: 36415; 82728

== ENCOUNTER 2024-01-22 15:55 | Outpatient (CLI) | payer OTHER, SELFPAY ==
--- NOTE | 2024-01-22 15:55 | US_ITS ---
PROCEDURE: US TRANSVAGINAL CLINICAL INDICATION: recurring pelvic pain COMPARISON: CT ABDPELWO CT abdomen pelvis wo con from 09/17/[address] ABDOMEN PELVIS WO CON from 10/10/[address] ABDOMEN PELVIS W CON from 08/23/2023 FINDINGS: Transvaginal sonographic images of the pelvis were obtained. UTERUS: 6.7cm x 4.4cmx 4.2cm midline at the beginning of the examination then became retroverted with a combined endometrial thickness of 4.6mm. A small nabothian cyst is seen within the cervix. LEFT OVARY: 2.1cmx1.5 cmx1.2cm with a volume of 2.1ml. There are multiple small peripheral follicles. RIGHT OVARY: 2.4cmx 1.0cmx1.2cm with a volume of 1.5ml. There are multiple small peripheral follicles. Both ovaries are seen and appear polycystic. Doppler flow to both ovaries are seen. There is no fluid in the cul-de-sac. IMPRESSION: 1. Retroverted uterus normal in shape and size. The endometrium is thin at 4.6 mm. 2. Both ovaries are seen and appear polycystic. 3. No fluid in the cul-de-sac. Dictated by: Hayden Macdonald MD 01/23/2024 08:54 Hayden Macdonald MD in [place] 01/23/2024 08:54
== END 2024-01-22 23:59 | disposition home or self-care (01) ==
LOC: RAD 15:55
PROVIDERS: PCP Obstetrics & Gynecology; Visit Provider Obstetrics & Gynecology
DX: R10.2 Pelvic and perineal pain (principal)
CPT/HCPCS: 76830

== ENCOUNTER 2024-01-27 08:29 | Outpatient (CLI) | payer OTHER, SELFPAY ==
[2024-01-27 09:12] LABS: Basophils # 0.1 K/mm3 (0-0.2); Basophils % 0.7 % (0.1-2.0); Eosinophils # 0.1 K/mm3 (0.0-0.4); Hematocrit 40.7 % (37.0-47.0); Hemoglobin 13.8 g/dL (12.2-16.2); Lymphocytes # 1.7 K/mm3 (0.7-4.5); Mean Corpuscular Hemoglobin 31.7 pg (27.0-31.2); Mean Corpuscular Volume 93.2 fl (81-99); Monocytes # 0.4 K/mm3 (0.1-1.0); Monocytes % 5.3 % (1.7-9.3); Neutrophils # 5.1 K/mm3 (1.8-7.8); Platelet Count 290 K/mm3 (142-424); Red Blood Count 4.36 M/mm3 (4.20-5.40); White Blood Count 7.4 K/mm3 (4.8-10.8)
[2024-01-27 09:41] LABS: Alanine Aminotransferase 21 U/L (12-78); Albumin/Globulin Ratio 1.7 (1.1-1.8); Alkaline Phosphatase 61 U/L (38-126); Anion Gap 12.1 mEq/L (5-15); Aspartate Amino Transferase 21 U/L (14-36); Bilirubin,Total 0.6 mg/dl (0.2-1.3); Blood Urea Nitrogen 14 mg/dl (7-17); Calcium 8.8 mg/dl (8.4-10.2); Carbon Dioxide 23 mmol/L (22.0-30.0); Chloride 109 mmol/L (98-107); Chol/HDL Ratio 4.9 (1-3.5); Cholesterol 187 mg/dl (140-200); Estimated Glomerular Filt Rate 95 ml/min (>60); GFR (African American) 115 ML/MIN (>60); Globulin 2.3 g/dL (1.3-3.2); Glucose 81 mg/dl (74-100); HDL Cholesterol 38 mg/dl (40-60); Potassium 4.1 mmoL/L (3.5-5.1); Sodium 140 mmol/L (136-145); Total Protein,Serum 6.3 g/dl (6.3-8.2); Triglycerides 64 mg/dl (30-150); Uric Acid 5.3 mg/dl (2.5-6.2); VLDL Cholesterol 13 mg/dL (0-40)
[2024-01-27 09:51] LABS: Direct LDL Cholesterol 151.07 mg/dL (100-129)
[2024-01-27 10:10] LABS: Thyroid Stimulating Hormone 0.03 uIU/mL (0.465-4.68)
[2024-01-27 10:29] LABS: Vitamin B12 465 pg/mL (239-931)
[2024-01-27 11:06] LABS: Hemoglobin A1C 4.8 % (4.0-6.0)
[2024-01-27 14:17] LABS: Free Thyroxine Index 3.4 ug/dL (5.93-13.13); T4 (Thyroxine) 13.1 ug/dl (5.53-11.0); Triiodothryronine (T3) Uptake 26 % (23.5-40.5)
[2024-01-27 14:31] LABS: Thyroid Stimulating Hormone 0.03 uIU/mL (0.465-4.68)
[2024-01-28 08:22] LABS: Estradiol 7.1 pg/mL (.); FSH 3.8 mIU/mL (.); LH 2.3 mIU/mL (.); Testosterone,Total 22 ng/dL (8-60)
[2024-01-28 11:16] LABS: Insulin Level Total 11.7 uIU/mL (2.6-24.9)
[2024-02-02 12:29] LABS: Vitamin B6 44.2 ug/L (3.4-65.2)
[2024-02-03 00:01] LABS: Vitamin B1 152.1 nmol/L (66.5-200.0)
[2024-02-09 17:21] LABS: 1,25 Dihydroxy Vitamin D 82 pg/mL (.); 1,25-Dihydroxy, Vitamin D-2 <10 pg/mL (.); 1,25-Dihydroxy, Vitamin D-3 82 pg/mL (.)
== END 2024-01-27 23:59 | disposition home or self-care (01) ==
PROVIDERS: PCP Nurse Practitioner Family; Visit Provider Obstetrics & Gynecology
DX: R10.31 Right lower quadrant pain (principal); Z80.41 Family history of malignant neoplasm of ovary; E05.90 Thyrotoxicosis, unspecified without thyrotoxic crisis or storm; R53.83 Other fatigue
CPT/HCPCS: 36415; 80050; 80053; 80061; 82607; 82652; 82670; 83001; 83002; 83036; 83525; 83735; 84207; 84403; 84425; 84436; 84443; 84479; 84550; 85025; 86850

== ENCOUNTER 2024-02-23 07:48 | Outpatient (CLI) | payer OTHER, SELFPAY ==
--- NOTE | 2024-02-23 07:48 | CT_ITS ---
FINAL REPORT TECHNIQUE: Axial CT images of the abdomen and pelvis were obtained before and after the administration of IV contrast. This study was performed with techniques to keep radiation doses as low as reasonably achievable (ALARA). Individualized dose reduction techniques using automated exposure control or adjustment of mA and/or kV according to the patient''s size were employed. CLINICAL HISTORY: RLQ pain COMPARISON: 08/23/2023 FINDINGS: Abdomen: The lung bases are clear. The heart is normal in size. There is a small hiatal hernia. The liver has an unremarkable appearance, without evidence of mass or biliary duct dilatation. Postcholecystectomy. The spleen is unremarkable. No adrenal masses present. The pancreas has an unremarkable appearance. There are several small nonobstructing renal stones measuring up to 3 mm. There is no hydronephrosis. The aorta is normal in caliber. There is no free fluid or adenopathy. No mass or abnormal fluid collection is seen. Precontrast images demonstrate no evidence of nephrolithiasis. Pelvis: The appendix is not seen but there are no localized inflammatory processes noted in the right lower quadrant. The urinary bladder is unremarkable. No inflammatory process is seen. There is no evidence of mass or adenopathy. There is no evidence of bowel obstruction. IMPRESSION: Small nonobstructing renal stones. Small hiatal hernia. No evidence of appendicitis. Reviewed, Interpreted and Dictated by Samuel Hernandez III, MD Transcribed by Sheree Doyle Authenticated and [facility]
[2024-02-23] MEDS: IOPAMIDOL-370 (76%);100ML BOTTLE 75 ML IV (08:03)
[2024-02-23] MEDS: SODIUM CHLORIDE 0.9% 10ML SYR (RAD ONLY) 10 ML IV (08:03)
== END 2024-02-23 23:59 | disposition home or self-care (01) ==
LOC: RAD 07:48
PROVIDERS: PCP Nurse Practitioner Family; Visit Provider Obstetrics & Gynecology
DX: R10.31 Right lower quadrant pain (principal)
CPT/HCPCS: 74178; Q9967

== ENCOUNTER 2025-02-27 15:26 | Outpatient (CLI) | payer OTHER, SELFPAY ==
--- NOTE | 2025-02-27 15:30 | CT_ITS ---
PROCEDURE INFORMATION: Exam: CT Abdomen And Pelvis Without And With Contrast Exam date and time: 02/27/2025 3:35 PM Age: 39 years old Clinical indication: Abdominal pain; Additional info: Rlq pain TECHNIQUE: Imaging protocol: Computed tomography of the abdomen and pelvis without and with contrast. Radiation optimization: All CT scans at this facility use at least one of these dose optimization techniques: automated exposure control; mA and/or kV adjustment per patient size (includes targeted exams where dose is matched to clinical indication); or iterative reconstruction. Contrast material: ISOVUE; Contrast volume: 75 ml; Contrast route: INTRAVENOUS (IV); COMPARISON: CT ABDOMEN PELVIS WO/W CON 02/23/2024 7:58 AM FINDINGS: Liver: Normal. No mass. Gallbladder and biliary ducts: Gallbladder is absent. Pancreas: Normal. No ductal dilation. Spleen: Normal. No splenomegaly. Adrenal glands: Normal. No mass. Kidneys and ureters: Nonobstructing bilateral nephrolithiasis. Stomach and bowel: Mild nonspecific bowel wall thickening of portions of small bowel and colon. Appendix: The appendix is not clearly identified. There are no secondary findings to suggest acute appendicitis. Intraperitoneal space: Unremarkable. No free air. No significant fluid collection. Vasculature: The arteries demonstrate mild atherosclerotic disease. Lymph nodes: Unremarkable. No enlarged lymph nodes. Urinary bladder: Unremarkable as visualized. Reproductive: Status post bilateral tubal ligation. The left tubal ligation clip has likely migrated. Bones/joints: Unremarkable. No acute fracture. Soft tissues: Unremarkable. Other findings: Stigmata of old granulomatous disease. IMPRESSION: 1. Mild nonspecific bowel wall thickening of portions of small bowel and colon. Please exclude enterocolitis. 2. Nonobstructing bilateral nephrolithiasis. 3. The arteries demonstrate mild atherosclerotic disease. This is advanced for the patient's age.
[2025-02-27] MEDS: SODIUM CHLORIDE 0.9% 10ML SYR (RAD ONLY) 10 ML IV (15:48)
[2025-02-27] MEDS: IOPAMIDOL-370 (76%);100ML BOTTLE 75 ML IV (15:48)
[2025-02-27 17:11] LABS: Hematocrit 41.1 % (37.0-47.0); Hemoglobin 13.6 g/dL (12.2-16.2); Immature Granulocytes % 0.2 %; Mean Corpuscular HGB Conc 33.1 g/dL (31.8-35.4); Mean Corpuscular Hemoglobin 31.1 pg (27.0-31.2); Mean Corpuscular Volume 94.1 fl (81-99); Nucleated Red Blood Cells % 0 %; Platelet Count 306 K/mm3 (142-424); Red Blood Count 4.37 M/mm3 (4.20-5.40); Red Cell Distribution Width-SD 45.1 fL; White Blood Count 9.0 K/mm3 (4.8-10.8)
[2025-02-27 18:09] LABS: Alanine Aminotransferase 20 U/L (12-78); Albumin Level 4.5 g/dl (3.5-5.0); Albumin/Globulin Ratio 1.6 (1.1-1.8); Alkaline Phosphatase 84 U/L (38-126); Anion Gap 19.3 mEq/L (5-15); Aspartate Amino Transferase 22 U/L (14-36); Bilirubin,Total 0.4 mg/dl (0.2-1.3); Blood Urea Nitrogen 9 mg/dl (7-17); Calcium 9.3 mg/dl (8.4-10.2); Carbon Dioxide 23 mmol/L (22.0-30.0); Chloride 104 mmol/L (98-107); Creatinine,Serum 0.80 mg/dl (0.52-1.04); Estimated Glomerular Filt Rate 81 ml/min (>60); GFR (African American) 98 ML/MIN (>60); Globulin 2.8 g/dL (1.3-3.2); Glucose 60 mg/dl (74-100); Potassium 4.3 mmoL/L (3.5-5.1); Sodium 142 mmol/L (136-145); Total Protein,Serum 7.3 g/dl (6.3-8.2)
== END 2025-02-27 23:59 | disposition home or self-care (01) ==
LOC: RAD 15:27
PROVIDERS: PCP Nurse Practitioner Family; Visit Provider Obstetrics & Gynecology
DX: N20.0 Calculus of kidney (principal); K63.89 Other specified diseases of intestine; I70.90 Unspecified atherosclerosis; R10.84 Generalized abdominal pain; R10.20 Pelvic and perineal pain unspecified side
CPT/HCPCS: 74178; 80053; 85025; Q9967

== ENCOUNTER 2025-03-01 07:24 | Outpatient (CLI) | payer OTHER, SELFPAY ==
[2025-03-01 18:32] LABS: Cholesterol 217 mg/dl (140-200); HDL Cholesterol 43 mg/dl (40-60); Triglycerides 96 mg/dl (30-150)
[2025-03-01 18:51] LABS: Free Thyroxine Index 4.0 ug/dL (5.93-13.13); T4 (Thyroxine) 16.0 ug/dl (5.53-11.0); Triiodothryronine (T3) Uptake 25 % (23.5-40.5)
[2025-03-01 19:05] LABS: Thyroid Stimulating Hormone < 0.02 uIU/mL (0.465-4.68)
== END 2025-03-01 23:59 ==
LOC: LAB.DROPOF 03-03 07:25
PROVIDERS: PCP Nurse Practitioner Family; Visit Provider Obstetrics & Gynecology
DX: K21.9 Gastro-esophageal reflux disease without esophagitis (principal); E66.09 Other obesity due to excess calories; E05.90 Thyrotoxicosis, unspecified without thyrotoxic crisis or storm; E04.9 Nontoxic goiter, unspecified
CPT/HCPCS: 80061; 84436; 84439; 84443; 84479

== ENCOUNTER 2025-03-02 08:56 | Outpatient (CLI) | payer OTHER, SELFPAY ==
[2025-03-02 16:11] LABS: Free T4 (Free Thyroxine) 1.30 ng/dl (0.78-2.19)
== END 2025-03-02 23:59 | disposition home or self-care (01) ==
LOC: LAB.DROPOF 03-06 08:57
PROVIDERS: PCP Nurse Practitioner Family; Visit Provider Student in an Organized Health Care Education/Training Program
DX: E05.90 Thyrotoxicosis, unspecified without thyrotoxic crisis or storm (principal)
CPT/HCPCS: 84439

== ENCOUNTER 2025-03-03 13:40 | Outpatient (CLI) | payer OTHER, SELFPAY ==
--- NOTE | 2025-03-03 14:00 | US_ITS ---
FINAL REPORT TECHNIQUE: Sonographic images of the thyroid gland were obtained in the longitudinal and transverse planes. CLINICAL HISTORY: evaluate and treat COMPARISON: 01/24/2022 FINDINGS: The right lobe measures 2.1 x 5.2 x 1.3 cm. Soft tissue along the posterior aspect of the right thyroid lobe is unchanged and is similar in echogenicity to the thyroid itself. This could represent lobulation of the thyroid. Parathyroid lesion not excluded. The left lobe measures 1.8 x 5.5 x 1.7 cm. Mixed cystic and solid 6 mm nodule is slightly larger than on the prior exam, consistent with a TR 3 lesion. The isthmus measures 5 mm. This is normal. IMPRESSION: Appearance of soft tissue along the posterior right thyroid is unchanged and could be related to either lobulated thyroid or parathyroid lesion. Subcentimeter TR 3 left thyroid nodule. Based on size, no current recommendation for follow-up per TI-RADS criteria. Reviewed, Interpreted and Dictated by Isabella Coelho MD Transcribed by Sheree Doyle Authenticated and [facility]
== END 2025-03-03 23:59 | disposition home or self-care (01) ==
LOC: RAD 13:41
PROVIDERS: PCP Nurse Practitioner Family; Visit Provider Obstetrics & Gynecology
DX: E04.1 Nontoxic single thyroid nodule (principal)
CPT/HCPCS: 76536

== ENCOUNTER 2025-03-08 12:30 | Outpatient (CLI) | payer OTHER, SELFPAY ==
[2025-03-08 19:00] LABS: Free T4 (Free Thyroxine) 1.40 ng/dl (0.78-2.19)
[2025-03-08 19:15] LABS: Thyroid Stimulating Hormone 2.51 uIU/mL (0.465-4.68)
--- OUTSIDE RECORDS SUMMARY | 2025-03-09 11:45 | XMS_ITS | Clinical Summary ---
[facility] Organization [facility] Address [address] [place] [address] Care Team Providers Care Data Analytics Chief Scientist Name Role Phone Irvin Fitzgerald APRN Primary Care Provider + [phone] Allergies Active Allergy Reactions Criticality Noted Date Comments Penicillins Hives Medium 08/29/2022 Sulfa Antibiotics Hives Medium 08/29/2022 Medications famotidine (PEPCID) 40 MG tablet Take 1 tablet by mouth Every Night. Active omeprazole (priLOSEC) 40 MG capsule Take 1 capsule by mouth Every Morning. Active Levonorgest-Eth Estrad -Day 0.15-0.03 &0.01 MG tablet Take 1 tablet by mouth Daily. Active Loratadine (Claritin) 10 MG capsule Take 1 capsule by mouth Every Morning. Active fluticasone (FLONASE) 50 MCG/ACT nasal spray 1 spray into the nostril(s) as directed by provider every night at bedtime. Active phentermine (ADIPEX-P) 37.5 MG tablet Take 1 tablet by mouth Every Morning Before Breakfast. Active Multiple Vitamins-Minera ls (HAIR SKIN NAILS PO) Take 3 capsules by mouth Daily. Active Evening [place] Oil 1000 MG capsule Take 1,000 mg by mouth every night at bedtime. Active Wilmer-3 Fatty Acids (Fish Oil Triple Strength) 1400 MG capsule Take 1,400 mg by mouth Daily. Active Social History Tobacco Use Types Packs/Day Years Used Date Smoking Tobacco: Former Cigarettes 0.5 17.2 2 006 - 05/23/2022 Passive Smoke Exposure: Never Smokeless Tobacco: Never Alcohol Use Standard Drinks/Week Comments Never 0 (1 standard drink = 0.6 oz pur e alcohol) Abuse Screen Answer Date Recorded Unsafe at Home or Work/School Not on file Feels Threatened by Someone? Not on file 01/2024 Does Anyone Keep You from Co ntacting Others or Doint Things Outside the Home? Not on file 09/01/2023 Physical Sign of Abuse Present Not on file 0 09/01/2023 Housing Stability Answer Date Recorded Current Living Arrangements Not on file 12/21 Potentially Unsafe Housing Conditions Not on randolph e 01/02/2023 Family and Community Support Answer Nate e Recorded Help with Day-to-Day Activities Not on file 01/02/2023 Lonely or Isolated Not on file 01/02/2023 Employment Answer Date Recorded Do you want help finding or keeping work or a ricardo b? Not on file 01/02/2023 Disabilities Answer Date Recorded Concentrating, Remembering, or Making Decisions Difficulty Not on file 01/02/2023 Doing Errands Independently Difficulty Not on fi le 01/02/2023 Education Answer Date Recorded Help with school or training? Not on file Preferred Language Not on file 01/02/2023 Comments Unknown Sex and Gender Information Value Date Recorded Sex Assigned at Not on file Legal Sex Female 9:24 AM EDT Gender Identity Not on file Sexual Orientation Not on file Last Filed Vital Signs Vital Sign Reading Time Taken Comments Blood Pressure - - Pulse - - Temperature - - Respiratory Rate - - Oxygen Saturation - - Inhaled Oxygen Concentration - - Weight 76.2 kg (168 lb) 08/29/2022 10:19 AM EDT Height 165.1 cm (5' 5 ) 08/29/2022 10:19 AM EDT Body Mass Index 27.96 08/29/2022 10:19 AM EDT Plan of Treatment Health Maintenance Due Date Last Done Comments ANNUAL PHYSICAL 1987 Annual Gynecologic Pelvic and Breast Exam 1987 HEPATITIS C SCREENING 1987 TDAP/TD VACCINES (3 - Td or Tdap) 01/14/2024 01/13/2014, 06/16/2003 INFLUENZA VACCINE 10/21/2024 12/21/2020, , 12/21/2017, Additional history exists Pneumococcal Vaccine 0-49 Aged Out No longer eligible based on patient's age to complete this topic Insurance [address] [place] [id number] [employer] Member Subscriber Plan / Payer (Ef fective 2015-Present) Name:Abebe Maria Relation to Subscriber:Self Name:Abebe Maria Payer ID:[id number] (NAIC) Type:Not on file Address: [place] [id number] Care Teams Data Analytics Chief Scientist Relationship Specialty Start Date End Date Irvin Fitzgerald APRN [address] [place] [address] [place] [id number] PCP - General Family Medicine 09/11/22
--- OUTSIDE RECORDS SUMMARY | 2025-03-09 11:45 | XMS_ITS | Clinical Summary ---
Author Organization [facility] Address [address] [facility] [address] [place] [phone] Phone Care Team Providers Care Supervisor Boat Outfitting Name Role Phone Unavailable Primary Care Provider Unavailabl e Active Problems Problem Noted Date Diagnosed Date Chickenpox 03/19/2011 Overview (03/19/2011): Immunizations Immunization Administration Dates Next Due DTaP 08/01/1993, 8,1987,1987 Hepatitis B, Unspecified Formulation 05/27/2005 HiB, Unspecified Formulation 08/01/1993 IPV 08/01/1993,1987,1987 MMR 10/21/1999,09/09/1988 Td, Unspecified Formulation 06/16/2003 Social History Tobacco Use Types Packs/Day Years Used Date Smoking Tobacco: Never Assessed Comments Unknown Sex and Gender Information Value Date Recorded Sex Assigned at Not on file Legal Sex Female 2:38 PM EDT Gender Identity Not on file Sexual Orientation Not on file Plan of Treatment Health Maintenance Due Date Last Done Comments Annual Wellness Exam 05/28/1990 DTaP/TDaP/Td (5 - Tdap) 06/17/2003 06/16/19 04, 08/01/1993, 1987, Additional history exists Hepatitis B Vaccine (2 of 3 - 3-dose series) 06/24/2005 05/27/2005 COVID-19 Vaccine ( - 2024- season) 2024 Influenza Vaccine (#1) 2024 Meningococcal B Vaccine Aged Out No l onger eligible based on patient's age to complete this topic Pneumococcal Vaccine 0-49 Aged Out No longer eligible based on patient's age to complete this topic
== END 2025-03-08 23:59 | disposition home or self-care (01) ==
LOC: LAB.DROPOF 03-09 10:28
PROVIDERS: PCP Nurse Practitioner Family; Visit Provider Student in an Organized Health Care Education/Training Program
DX: E05.90 Thyrotoxicosis, unspecified without thyrotoxic crisis or storm (principal)
CPT/HCPCS: 84439; 84443

== ENCOUNTER 2025-03-13 07:26 | Outpatient (CLI) | payer SELFPAY ==
--- OUTSIDE RECORDS SUMMARY | 2025-03-13 07:28 | XMS_ITS ---
Author Organization Unknown ENCOUNTERS Encounter Performer Location Date Diagnosis Diagnosis Status Emergency [address] [place] [address] [id number] RENZO Pre Admit [address] [place] [address] [id number] Pre Admit [address] [place] [address] [id number] Emergency [address] [address] [address] [place] [address] [id number] RENZO *Note: Encounters from your own facility or health system may be excluded. Allergies, Adverse Reactions, Alerts Allergen Type Severity Identification Date Sulfa (Sulfonamide Antibiotics) drug allergy 0 [id number] albuterol drug allergy 0 [id number] Penicillins drug allergy 0 [id number] Medications Name Date Quantity Days Supplied GPI Number
--- OUTSIDE RECORDS SUMMARY | 2025-03-13 07:28 | XMS_ITS | Clinical Summary ---
[facility] Address [address] [place] [address] Care Team Providers Care Track Layer Head Name Role Phone Irvin Fitzgerald APRN Primary Care Provider + [phone] Allergies Active Allergy Reactions Criticality Noted Date [...] 3 capsules by mouth Daily. Active Evening [place] Oil 1000 MG capsule Take 1,000 mg by mouth every night at bedtime. Active Avalon-3 Fatty Acids (Fish Oil Triple Strength) 1400 [...] topic Insurance [address] [place] [id number] [employer] Member Subscriber Plan / Payer (Ef fective 2015-Present) Name:Abebe Maria Relation to Subscriber:Self Name:Abebe Maria Payer ID:[id number] (NAIC) Type:Not on file Address: [place] [phone] Care Teams Track Layer Head Relationship Specialty Start Date End Date Irvin Fitzgerald APRN [address] [place] [address] [place] [id number] PCP - General Family Medicine 09/11/22
--- OUTSIDE RECORDS SUMMARY | 2025-03-13 07:29 | XMS_ITS | Clinical Summary ---
Author Organization [facility] Address [address] [facility] [address] [place] [phone] Phone Care Team Providers Care Utility Teller Name Role Phone Unavailable Primary Care Provider [...]
--- OUTSIDE RECORDS SUMMARY | 2025-03-13 07:29 | XMS_ITS | Data Portability ---
Author Organization [facility] Address [address] [place] [address] Care Team Providers Care Director Of Institutional Research Name Role Phone DUNCAN BAR Primary Care Provider Assessment Encounter Date Assessment Date Assessment LastModified by Organization Details LastModified Time 07/05/2024 07/05/2024 Risks, benefits, and alternatives of the medication have been discussed with the patient. She would like to move forward with a prescription of adipex. [email or web address] Not available 07/05/2024 18:01:35 Plan of Treatment Reminders Order Date Submit Date Provider Last Modified By Organization Details Last Modified Time Details Appointments None recorded. Lab None recorded. Referral None recorded. Procedures None recorded. Surgeries None recorded. Imaging None recorded. Medication Orders cyclobenzap rine 5 mg tablet 2024 025 [facility], [address] [place] [address], [id number], 13:27:26 Adipex-P 37.5 mg tablet 2024 025 [facility], [address] [place] [address], [id number], 12:33:10 cyclobenzap rine 5 mg tablet 2024 025 [facility], [address] [place] [address], [id number], 5 18:25:38 Adipex-P 37.5 mg tablet 2024 025 [facility], [address] [place] [address] S, [place], [id number], 5 18:25:43 famotidine 40 mg tablet 2024 025 [facility], [address] [place] [address] S, [place], [id number], 5 17:59:15 omeprazole 40 mg capsule,del ayed release 2024 025 [facility], [address] [place] [address] S, [place], [id number], 5 17:59:18 loratadine 10 mg tablet 2024 025 [facility], [address] [place] [address] S, [place], [id number], 5 17:59:12 Adipex-P 37.5 mg tablet 2024 025 [facility], [address] [place] [address] S, [place], [id number], 5 18:01:26 Adipex-P 37.5 mg tablet 2023 024 [facility], [address] [place] [address] S, [place], [id number], 4 18:07:23 Patient TargetsNo targets recorded. Patient Instructions Encounter Date Encounter Id Patient Instructions Last Modified By Organization Details Last Modified Time 07/05/2024 [id number] Treament Plan: Patient will start medication as directed. Patient will continue exercise, watch calorie intake, and follow up for weight check in 1 month. [email or web address] Not available 07/05/2024 17:30:16 Reason for Referral None Reported. Results Created Date Observation Date Name Description Value Unit Range Abnormal Flag Note LastModifiedBy Organization Detail LastModifiedTime 02/09/20 24 02/09/2024 drug scree n, urine THC negati ve Not Available [address], [address], 02/09/2024 18:05:16 02/09/20 24 02/09/2024 drug scree n, urine TCA negati ve Not Available [address], [address], 02/09/2024 18:05:16 02/09/20 24 02/09/2024 drug scree n, urine BAR negati ve Not Available [address], [address], 02/09/2024 18:05:16 02/09/20 24 02/09/2024 drug scree n, urine BZO negati ve Not Available [address], [address], 02/09/2024 18:05:16 02/09/20 24 02/09/2024 drug scree n, urine MTD negati ve Not Available [address], [address], 02/09/2024 18:05:16 02/09/20 24 02/09/2024 drug scree n, urine AMP negati ve Not Available [address], [address], 02/09/2024 18:05:16 02/09/20 24 02/09/2024 drug scree n, urine MOP negati ve Not Available [address], [address], 02/09/2024 18:05:16 02/09/20 24 02/09/2024 drug scree n, urine OXY negati ve Not Available [address], [address], 02/09/2024 18:05:16 02/09/20 24 02/09/2024 drug scree n, urine MDMA negati ve Not Available [address], [address], 02/09/2024 18:05:16 02/09/20 24 02/09/2024 drug scree n, urine MAC negati ve Not Available [address], [address], 02/09/2024 18:05:16 02/09/20 24 02/09/2024 drug scree n, urine PCP negati ve Not Available [address], [address], 02/09/2024 18:05:16 02/09/20 24 02/09/2024 drug scree n, urine MET negati ve Not Available [address], [address], 02/09/2024 18:05:16 02/23/20 24 02/23/2024 CT, abdom en + pelvi s, w/wo contr ast No observ ation record ed. [facility] [address], [place], [id number], 02/25/2024 11:47:38 02/28/20 25 02/27/2025 CT, abdom en + pelvi s, w/wo contr ast No observ ation record ed. [facility] [address], [place], [id number], 02/27/2025 16:43:59 03/07/20 25 03/03/2025 [place], thyro id No observ ation record ed. [facility] [address], [place], [id number], 03/07/2025 14:13:09 Result Notes None recorded. Problems Name Problem SNOMED Code Status Onset Date Resolution Date Notes Provider Name and Address Organization Details Recorded Time Nicotine dependen ce 32485739 Completed 02/03/2018 Petramat [place], [place] - [facility] 8 08:32:37 Past pregnanc y history of gestatio nal diabetes mellitus 980974295 Active Duncan Bar APRN [address], [place], [address], [place] - [facility] 2 11:47:59 Gastroes ophageal reflux disease 648167926 Active Duncan Bar APRN [address], [place], [address], [place] - [facility] 2 11:48:09 Abnormal cervical Papanico laou smear 619123868 Completed 200512/30/2016 2006 Removal Reason: normal papx3 Mitch Painter RN [address], [place], [address], [place] - [facility] 7 09:55:12 Kidney stone 53277599 Completed 201602/03/2018 Petra [place]oj[place], [place] - [facility] 8 08:32:21 Menorrha marcelo 083379889 Active 2016 Mitch Painter RN [address], [place], [address], [place] - [facility] 7 11:05:06 Dysmenor ann 842763921 Active 2016 Duncan Bar APRN [address], [place], [address], [place] - [facility] 2 11:48:06 Reduced libido 5404602 Active 2018 Leticia Nunez MD [address], [place], [address], [place] [facility] 9 13:59:06 Surveill ance of oral contrace ption Active 2018 Leticia Nunez MD [address], [place], [address], [place] [facility] 9 13:59:19 Body mass index 25-29 - overweig ht 131257296 Active 2018 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, 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 [address], [place], [address], [place] [facility] 2 11:48:03 Vaccine declined by patient 2965289631 02 Active 2020 Leticia Nunez MD [address], [place], [address], [place] [facility] 1 13:22:52 Hernia of abdomina l cavity 88298783 Active 2022 Duncan Bar APRN [address], [place], [address], [place] [facility] 3 11:40:34 Acute urinary tract infectio n 036492183 Active 2022 Brandon Burnett, 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 [address], [place], [address], [place] [facility] 3 14:05:32 Hypothyr oidism 30103517 Active 2023 Duncan Bar APRN [address], [place], [address], [place] [facility] 4 18:09:06 Hyperlip idemia 40883964 Active 2023 Duncan Bar 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 Anat Alfonso [place] - [facility] 9 11:13:57 01/28 Unlisted px dentalvlr strux completed Petra Wheat [place] - [facility] 8 08:33:57 10/14 Fragmenting of kidney stone completed Mitch Painter RN [address], [place], [address], [place] [facility] 7 10:54:25 02/10 Tubal Ligation completed Mitch Painter RN [address], [place], [address], [place] - [facility] 7 09:57:26 02/10 delivery completed Mitch Painter RN [address], [place], [address], [place] - [facility] 7 09:57:54 01/01 /2006 Colposcopy completed Mitch Painter RN [address], [place], [address], [place] - [facility] 7 09:58:09 Caesarean Section completed Court Peralta [place] - [facility] 2 13:07:03 Cholecystectomy, laparoscopic completed Shawnee Watkins [place] - [facility] 4 13:15:42 Imaging Results None recorded. Procedure Notes None recorded. Medical Equipment None Reported. Allergies Allergen ID Allergen Name Allergen Category Reaction Reaction Severity Criticality Documentation Date Start Date Code Code System Note Provider Name and Address Organization Details Recorded Time 87498 Substance with sulfonami de structure and antibacte rial mechanism of action (substanc e) medicatio n Not available Not available Not available 12/28/20152007 27461 8003 SNOMED React ion: Hives as a child ; Comme nt: Sulfo namid es; Not Available [facility] 6 09:01:14 68354 Product containin g penicilli n (product) medicatio n Not available Not available Not available 12/28/20152007 42026 8001 SNOMED React ion: Hives as a child ; Comme nt: Penic illin ; Not Available [facility] 6 09:01:14 17367 albuterol sulfate medicatio n rash Not available Not available 12/28/20152007 50966 3 RxNorm React ion: Rash; Comme nt: Mitchell duglas [place], [place] - [facility] 1 14:26:04 Medications Name Sig Start Date Stop Date Status Note LastModified by Organization Details LastModified Time cyclobenz aprine 10 mg tablet 05/23 completed Not Available Not Available Not Available Mirena 21 mcg/24 hr (up to 8 years) 52 mg intrauter ine device as directed 06/23 completed Mirena 20 mcg/24 hr (5 years) intraute rine intraute rine device;R ecorded Status: Recorded on: 01/04/20 10 11:49AM; Disconti nued Status: Disconti nued on: 06/24/19 14 10:28AM; User: [email or web address]; Printed: 01/04/20 10 Not Available Not Available Not Available promethaz ine-DM 6.25 mg-15 mg/5 mL oral syrup Take 5 mL as needed by oral route at bedtime for 3 days. 02/25 completed Not Available Not Available Not Available clindamyc in HCl 300 mg capsule take 1 capsule (300 mg) by oral route 2 times per day for 7 days 01/06 completed clindamy dg HCl 300 mg oral capsule; Prescrib e Status: Prescrib ed on: 12/21/19 14 3:44PM;D iscontin ued Status: Disconti nued on: 01/07/20 14 2:48PM;U ser: [email or web address]; Est. Completi on: 12/28/19 14;Pharm acyVerif ied: 12/21/19 14 3:44PM Not Available Not Available Not Available loperamid e 2 mg capsule 08/24 completed Not Available Not Available Not Available azithromy dg 250 mg tablet TAKE 2 TABLETS (500 MG) BY ORAL ROUTE ONCE DAILY FOR 1 DAY THEN 1 TABLET (250 MG) BY ORAL ROUTE ONCE DAILY FOR 4 DAYS 05/10 completed Not Available Not Available Not Available ibuprofen 800 mg tablet TAKE 1 TABLET BY MOUTH THREE TIMES DAILY active Not Available Not Available No t Available fluconazo le 150 mg tablet 02/08 completed Not Available Not Available Not Available valacyclo vir 1 gram tablet 02/08 completed Not Available Not Available Not Available hydrocodo ne 5 mg-acetam inophen 325 mg tablet 03/24 completed Not Available Not Available Not Available famotidin e 40 mg tablet TAKE ONE TABLET BY MOUTH ONCE A DAY active Not Available Not Available No t Available prednison e 20 mg tablet Take 1 tablet twice a day by oral route for 5 days. 02/25 completed Not Available Not Available Not Available Alcohol Pads apply to affected area by topical route 4 times a day 02/20 completed Alcohol Pads topical pads, medicate d;Prescr silverio Status: Prescrib ed on: 12/10/19 14 4:16PM;D iscontin ued Status: Disconti nued on: 02/21/20 14 2:42PM;U ser: [email or web address] ;Indicat ion: Abnormal glucose toleranc e in mother, complica ting pregnanc y, childbir th, or the puerperi um, antepart um conditio n or complica tion - (648.83) ;Pharmac yVerifie d: 12/10/19 14 4:16PM Not Available Not Available Not Available Phenergan 25 mg tablet 01/03 completed Phenerga n 25 mg oral tablet;R ecorded Status: Recorded on: 06/21/19 10 1:55PM;D iscontin ued Status: Disconti nued on: 01/04/20 10 10:40AM; User: [facility] Not Available Not Available Not Available clindamyc in HCl 150 mg capsule take 3 capsules (450 mg) by oral route every 6 hours for 7 days 02/03 completed Not Available Not Available Not Available metronida zole 500 mg tablet take 1 tablet (500 mg) by oral route every 12 hours for 7 days 02/20 completed metronid azole 500 mg oral tablet;P rescribe Status: Prescrib ed on: 01/21/20 14 11:40AM; Disconti nued Status: Disconti nued on: 02/21/20 14 2:42PM;U ser: [email or web address];Yovana t. Completi on: 01/28/20 14;Indic ation: Bacteria l Vaginosi s - (10.6169 00);Phar macAlexeri fied: 01/21/20 14 11:40AM Not Available Not Available Not Available phentermi ne 37.5 mg tablet TAKE 1 TABLET BY MOUTH ONCE A DAY active Not Available Not Available No t Available ciproflox acin 250 mg tablet 02/08 completed Not Available Not Available Not Available omeprazol e 40 mg capsule,d elayed release TAKE ONE CAPSULE BY MOUTH ONCE A DAY active Not Available Not Available No t Available Zantac 150 mg tablet take 1 tablet (150 mg) by oral route 2 times per day 01/03 completed Zantac 150 mg oral tablet;R ecorded Status: Recorded on: 05/23/19 10 3:14PM;D iscontin ued Status: Disconti nued on: 01/04/20 10 11:11AM; User: Jannie rinted: 05/23/19 10 Not Available Not Available Not Available ketorolac 10 mg tablet 05/23 completed Not Available Not Available Not Available Vitamin tablet take 1 tablet by oral route once daily for 30 days 01/03 completed Vitamin Oral Tablet;R ecorded Status: Recorded on: 04/02/19 10 11:15AM; Disconti nued Status: Disconti nued on: 01/04/20 10 11:11AM; User: [address]. Completi on: 03/28/19 11;Indic ation: Pregnanc y - (18.V222 00);Prin farooq: 04/02/19 10 Not Available Not Available Not Available Procardia 10 mg capsule take 2 capsule by oral route Q 6 hours 01/03 completed Procardi a 10 mg oral capsule; Recorded Status: Recorded on: 10/24/19 10 3:58PM;D iscontin ued Status: Disconti nued on: 01/04/20 10 10:40AM; User: reyna Not Available Not Available Not Available oxycodone -acetamin ophen 5 mg-325 mg tablet 02/03 completed Not Available Not Available Not Available ceftriaxo ne 1 gram solution for injection Take 1 g every day by injectio n route. 02/25 completed Not Available Not Available Not Available tamsulosi n 0.4 mg capsule 12/31 completed Not Available Not Available Not Available dicyclomi ne 20 mg tablet 08/24 completed Not Available Not Available Not Available OneTouch Ultra Test strips for FSBS testing QID - fasting and 2 hours after meals 02/20 completed OneTouch Ultra Test miscella neous strip;Pr escribe Status: Prescrib ed on: 12/10/19 14 4:16PM;D iscontin ued Status: Disconti nued on: 02/21/20 14 2:42PM;U ser: [email or web address] ;Indicat ion: Abnormal glucose toleranc e in mother, complica ting pregnanc y, childbir th, or the puerperi um, antepart um conditio n or complica tion - (648.83) ;Pharmac yVerifie d: 12/10/19 14 4:16PM Not Available Not Available Not Available meclizine 25 mg tablet 05/23 completed Not Available Not Available Not Available benzonata te 100 mg capsule Take 1 capsule every day by oral route as needed. 02/25 completed Not Available Not Available Not Available OneToPixium Vision Ultra System Kit use as directed 02/20 completed Valldata ServicesTouch Ultra System Kit miscella neous kit;Pres cribe Status: Prescrib ed on: 12/10/19 14 4:16PM;D iscontin ued Status: Disconti nued on: 02/21/20 14 2:42PM;U ser: [email or web address] ;Indicat ion: Abnormal glucose toleranc e in mother, complica ting pregnanc y, childbir th, or the puerperi um, antepart um conditio n or complica tion - (648.83) ;Pharmac yVerifie d: 12/10/19 14 4:16PM Not Available Not Available Not Available ferrous sulfate 325 mg (65 mg iron) tablet take 1 tablet (325 mg) by oral route 3 times per day for 30 days 01/03 completed ferrous sulfate 325 mg (65 mg iron) oral tablet;R ecorded Status: Recorded on: 04/02/19 10 11:15AM; Disconti nued Status: Disconti nued on: 01/04/20 10 11:11AM; User: Holland guthrie Completrad on: 03/28/19 11;Print ed: 04/02/19 10 Not Available Not Available Not Available triamcino lone acetonide 0.1 % topical ointment active Not Available Not Available Not Available minocycli ne 50 mg capsule take 1 capsule (50 mg) by oral route 2 times per day for 30 days 02/03 completed minocycl ine 50 mg oral capsule; Recorded Status: Recorded on: 04/21/19 13 2:12PM;D iscontin ued Status: Disconti nued on: 02/04/20 13 8:49AM;U ser: [email or web address]; Est. Completi on: 06/21/19 13;Indic ation: Acne Vulgaris - (12.7061 00);Prin farooq: 04/21/19 13 Not Available Not Available Not Available dexametha sone 0.75 mg tablet 02/03 completed Not Available Not Available Not Available Cleocin 2 % vaginal cream insert 1 applicat orful (100 mg) by vaginal route once daily at bedtime for 7 days 02/20 completed Cleocin 2 % vaginal cream;Pr escribe Status: Prescrib ed on: 02/04/20 14 2:55PM;D iscontin ued Status: Disconti nued on: 02/21/20 14 2:42PM;U ser: [email or web address] ;Est. Completi on: 02/11/20 14;Indic ation: Bacteria l Vaginosi s - (10.6169 );Phar macyVeri fied: 02/04/20 14 2:55PM Not Available Not Available Not Available dexametha sone sodium phosphate 4 mg/mL injection solution Inject 1 mL every day by intramus cular route. 08/24 completed Not Available Not Available Not Available ibuprofen 600 mg tablet 02/03 completed Not Available Not Available Not Available levofloxa dg 500 mg tablet 12/31 completed Not Available Not Available Not Available methylpre dnisolone 4 mg tablets in a dose pack 05/10 completed Not Available Not Available Not Available oxybutyni n chloride 5 mg tablet 12/31 completed Not Available Not Available Not Available ondansetr on 4 mg disintegr ating tablet 08/24 completed Not Available Not Available Not Available cefdinir 300 mg capsule TAKE ONE CAPSULE BY MOUTH TWICE DAILY 07/05 completed Not Available Not Available Not Available fluticaso ne propionat e 50 mcg/actua tion nasal spray,eloy pension USE 1 SPRAY IN EACH NOSTRIL ONCE A DAY 2024 active Not Available Not Available Not Avai lable Ingris (28) 3 mg-0.03 mg tablet take 1 tablet by oral route once daily for 28 days 04/26 completed Ingris (28) 3-0.03 mg oral tablet;R ecorded Status: Recorded on: 12/22/19 08 3:00PM;D iscontin ued Status: Disconti nued on: 04/26/19 09 3:50PM;U ser: Piter . Completi on: 07/06/19 09;Print ed: 12/22/19 08 Not Available Not Available Not Available loratadin e 10 mg tablet TAKE ONE TABLET BY MOUTH ONCE A DAY active Not Available Not Available No t Available naproxen 500 mg tablet 12/31 completed Not Available Not Available Not Available esomepraz ole magnesium 20 mg capsule,d elayed release Take 1 capsule every day by oral route. 06/06 completed Not Available Not Available Not Available neomycin- polymyxin -hydrocor t 3.5 mg-10,000 unit/mL-1 % ear drops,eloy p INSTILL 2 DROPS INTO AFFECTED EAR(S) BY OTIC ROUTE 2 TIMES PER DAY 08/25 completed Not Available Not Available Not Available escitalop soheila 10 mg tablet TAKE ONE TABLET BY MOUTH ONCE A DAY 02/08 completed Not Available Not Available Not Available Ortho Tri-Cycle n LO (28) 0.18 mg/0.215 mg/0.25 mg-25 mcg tablet take 1 tablet by oral route once daily for 28 days 04/02 completed Ortho Tri-Cycl en Lo (28) 0.18/0.2 15/0.25 mg-25 mcg oral tablet;R ecorded Status: Recorded on: 04/26/19 09 3:50PM;D iscontin ued Status: Disconti nued on: 04/02/19 10 10:44AM; User: Piter [email or web address] Completi on: 11/09/19 09;Print ed: 04/26/19 09 Not Available Not Available Not Available Sharps Container use as directed 02/20 completed Sharps Containe r miscella neous misc;Pre scribe Status: Prescrib ed on: 12/10/19 14 4:16PM;D iscontin ued Status: Disconti nued on: 02/21/20 14 2:42PM;U ser: [email or web address] ;Indicat ion: Abnormal glucose toleranc e in mother, complica ting pregnanc y, childbir th, or the puerperi um, antepart um conditio n or complica tion - (648.83) ;Pharmac yVerifie d: 12/10/19 14 4:16PM Not Available Not Available Not Available cyclobenz aprine 5 mg tablet TAKE 1 TABLET BY MOUTH NEEDED AT BEDTIME active Not Available Not Available No t Available Ortho-Cyc vesta (28) 0.25 mg-35 mcg tablet one daily, skip inactive pills 04/12 completed Not Available Not Available Not Available nitrofura ntoin monohydra te/macroc rystals 100 mg capsule Take 1 capsule every 12 hours by oral route for 7 days. 03/24 completed Not Available Not Available Not Available OneTouch UltraSoft Lancets BS testing QID - fasting and 2 hours after meals 02/20 completed OneTouch UltraSof t Lancets miscella neous misc;Pre scribe Status: Prescrib ed on: 12/10/19 14 4:16PM;D iscontin ued Status: Disconti nued on: 02/21/20 14 2:42PM;U ser: [email or web address] ;Indicat ion: Abnormal glucose toleranc e in mother, complica ting pregnanc y, childbir th, or the puerperi um, antepart um conditio n or complica tion - (648.83) ;Pharmac yVerifie d: 12/10/19 14 4:16PM Not Available Not Available Not Available 27 mg iron-0.8 mg tablet take 1 tablet by oral route once daily 09/07 completed 27-0.8 mg oral tablet;R ecorded Status: Recorded on: 07/01/19 14 3:29PM;D iscontin ued Status: Disconti nued on: 09/08/19 15 9:06AM;U ser: [email or web address];I ndicatio n: Pregnanc y - (18.V222 00) Not Available Not Available Not Available qd 06/20 completed Oral;Rec orded Status: Recorded on: 12/22/19 08 2:45PM;D iscontin ued Status: Disconti nued on: 06/21/19 10 1:55PM;U ser: [facility] Not Available Not Available Not Available Chantix Continuin g Month Box 1 mg tablet Take 1 tablet twice a day by oral route. 02/03 completed Not Available Not Available Not Available Chantix Starting Month Box 0.5 mg (11)-1 mg (42) tablets in dose pack Take 1 tablet twice a day by oral route as directed . 02/03 completed Not Available Not Available Not Available Daysee 0.15 mg-30 mcg (84)/10 mcg(7) tablets,3 month dose pack TAKE ONE TABLET BY MOUTH ONCE A DAY active Not Available Not Available No t Available Flonase Allergy Relief 11/08 completed Not Available Not Available Not Available Alive Hair, Skin and Nails 1,250 mcg-50 mg-67.5 mg-15 mg chew tablet Take 1 tablet every day by oral route. active Not Available Not Available No t Available elderberr y fruit 350 mg capsule Take by oral route. active Not Available Not Available No t Available Vitals Date Recorded Body height Body temperature Respiratory rate Pain severity - 0-10 verbal numeric rating [Score] - Reported Body mass index (BMI) Body weight Heart rate Oxygen saturation Systolic And Diastolic Provider Name and Address Organization Details Last Updated DateTime 5 165.1 cm 97.9 [degF] 18 /min 0 28 kg/m2 52230.5 2 g 88 /min 98 % 118/82 mm[Hg] Lacy Peralta [facility] 5 17:40:39 Date Recorded Body height Body mass index (BMI) Body weight Heart rate Oxygen saturation Respiratory rate Pain severity - 0-10 verbal numeric rating [Score] - Reported Body temperature Systolic And Diastolic Provider Name and Address Organization Details Last Updated DateTime 5 165.1 cm 29 kg/m2 12683.8 7 g 94 /min 96 % 18 /min 0 98 [degF] 124/82 mm[Hg] Lacy Peralta [place] - [facility] 5 17:29:06 Date Recorded Body height Body mass index (BMI) Body weight Body temperature Heart rate Oxygen saturation Respiratory rate Pain severity - 0-10 verbal numeric rating [Score] - Reported Systolic And Diastolic Provider Name and Address Organization Details Last Updated DateTime 5 165.1 cm 27.6 kg/m2 73795.3 3 g 98 [degF] 87 /min 98 % 20 /min 0 124/80 mm[Hg] Lacy HENNESSY - [facility] 5 18:09:02 Date Recorded Body height Body mass index (BMI) Body weight Body temperature Heart rate Oxygen saturation Respiratory rate Pain severity - 0-10 verbal numeric rating [Score] - Reported Systolic And Diastolic Provider Name and Address Organization Details Last Updated DateTime 5 165.1 cm 27.3 kg/m2 95410.1 5 g 98.1 [degF] 84 /min 98 % 20 /min 4 122/80 mm[Hg] Lacy HENNESSY - [facility] 5 17:39:40 Date Recorded Body height Body mass index (BMI) Body weight Heart rate Oxygen saturation Respiratory rate Pain severity - 0-10 verbal numeric rating [Score] - Reported Body temperature Systolic And Diastolic Provider Name and Address Organization Details Last Updated DateTime 4 165.1 cm 28.5 kg/m2 29441.1 g 97 /min 98 % 18 /min 0 98 [degF] 118/78 mm[Hg] Lacy Peralta [place] - [facility] 4 17:24:06 Social History Question Answer Notes LastModified by Organizat ion Details LastModified Time Tobacco Smoking Status Former Smoker quit 2018! to stay on OCP! quit smoking 05-23-2022 per patient Shawnee riojas [place] - [facility] 08/25/2022 10:56:26 Do You Have An Advance Directive? No Information not available 12/31/2016 Are You Blind Or Do You Have Difficulty Seeing? No Information not available 10/11/2021 Is Blood Transfusion Acceptable In An Emergency? Yes Information not available 12/31/2016 What Is Your Level Of Caffeine Consumption? Occasional Information not available 12/31/2016 In The 14 Days Before Symptom Onset, Have You Had Close Contact With A Laboratory-confi rmed COVID-19 While That Case Was Ill? No Information not available 09/22/2022 In The 14 Days Before Symptom Onset, Have You Had Close Contact With A Person Who Is Under Investigation For COVID-19 While That Person Was Ill? No Information not available 09/22/2022 Have You Been To An Area Known To Be High Risk For COVID-19? No Information not available 09/22/2022 Are You Deaf Or Do You Have Serious Difficulty Hearing? No Information not available 12/31/2016 What Type Of Diet Are You Following? CARBOHYDRATE Information not available 10/11/2021 Which Illicit Or Recreational Drugs Have You Used? Never Information not available 05/23/2020 Have You Processed Blood Or Body Fluids From An Ebola Virus Disease Patient Without Appropriate PPE? No Information not available 09/22/2022 Do You Reside In Or Have You Traveled To An Area Where Ebola Virus Transmission Is Active? No Information not available 09/22/2022 What Is The Highest Grade Or Level Of School You Have Completed Or The Highest Degree You Have Received? IU98040-1 Information not available 10/11/2021 Have There Been Any Changes To Your Family Or Social Situation? No Information not available 08/25/2022 What Is The Fluoride Status Of Your Home? Unknown Information not available 08/25/2022 Have You Recently Or Are You Planning To Travel To An Area With Zika Virus? No Information not available 09/22/2022 Live Alone Or With Others? With Others Information not available 10/11/2021 Do You Have A Medical Power Of Tourist Camp Attendant? No Information not available 08/25/2022 What Was The Date Of Your Most Recent Tobacco Screening? 05/10/2024 Information not available 05/10/2024 How Many Children Do You Have? 3 Information not available 12/31/2016 What Is Your Current Pack Years? 10-19packyears Information not available 08/25/2022 Performs Monthly Self-breast Exam? Yes Information not available 10/11/2021 Do You Use Protection During Sex? No Information not available 10/11/2021 What Is Your Relationship Status? Information not available 12/31/2016 Do You Use Your Seat Belt Or Car Seat Routinely? Yes Information not available 10/11/2021 Seat Belts Used Routinely Yes Information not available 10/11/2021 Are You Sexually Active? Yes Information not available 10/11/2021 Do You Have Smoke And Carbon Monoxide Detectors In Your Home? Yes Information not available 10/11/2021 At What Age Did You Start Smoking Tobacco? 20 lshower Information not available 07/05/2021 Are You Passively Exposed To Smoke? No Information not available 10/11/2021 How Much Tobacco Do You Smoke? 0.5 PPD Information not available 10/11/2021 Do You Use Sunscreen Routinely? No Information not available 12/31/2016 Has Tobacco Cessation Counseling Been Provided? No Information not available 10/11/2021 On What Date Was Tobacco Cessation Counseling Provided? 07/05/2021 Information not available 10/11/2021 How Many Years Have You Smoked Tobacco? 17 Information not available 08/25/2022 Do You Have Difficulty Walking Or Climbing Stairs? No Information not available 10/11/2021 Sex: Female Functional Status Question Answer Note LastModified by Organizat ion Details LastModified Time How many times per week do you consume alcohol? 1-2 times per week Information not available 08/25/2022 Do you or have you ever used smokeless tobacco? Never used smokeless tobacco Information not available 05/23/2020 Are you currently employed? Yes Information not available 12/31/2016 Do you have transportation difficulties? No Information not available 08/25/2022 Urinary incontinence assessment performed? Yes Information not available 10/11/2021 Are you able to care for yourself independently? Yes Information not available 10/11/2021 Do you have difficulty dressing, bathing, grooming, or toileting? No Information not available 10/11/2021 Do you or have you ever used e-cigarettes or vape? Never used electronic cigarettes Information not available 10/11/2021 What is your exercise level? Moderate Information not available 10/11/2021 Do you use any illicit or recreational drugs? No Information not available 08/25/2022 Do you or have you ever used any other forms of tobacco or nicotine? No Information not available 08/25/2022 What is your level of alcohol consumption? Occasional Information not available 05/23/2020 Are you able to walk independently without assistance or assistive devices? YESWOREST Information not available 10/11/2021 Do you have difficulty doing errands alone? 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 [id number] Information not available 10/11/2021 Do you have difficulty concentrating, remembering or making decisions? No Information no t available 10/11/2021 Family History Relationship Description Onset Age of this Age Resolved Age Notes LastModified by Organization Details LastModified Time Father Malignant neoplasm of pancreas cbuckler Not available 2021 13:07:01 Father Heart disease 63 cbuckler Not available 2021 13:07:01 Father Malignant neoplastic disease cbuckler Not available 2021 13:07:01 Paternal Grandfather Myocardial infarction cbuckler Not available 10/11 13:07:01 Maternal Grandmother Malignant neoplasm of ovary cdicken Not available 2016 09:56:59 Medical History Condition Response Allergies/Hayfever Y Acid Reflux (GERD) Y Gynecological History Statement/Question Response Abnormal Pap Y Date of Last Mammogram Flow Light Date of LMP 04/05/2024 Post Menopausal Bleeding N STIs/STDs N Colposcopy 03/23/2020 HPV Vaccine N Duration of Flow (days) 7 Current Control Method Tubal Ligat ion Age at Menarche 13 Age at First Child 22 Last Annual Exam/Provider 07/05/21 [facility] Date of Last Colonoscopy Frequency of Cycle (Q days) 86 Sexually Active? Y Menses Monthly N Date of Last Pap Smear 05/23/2020 Sexual Problems? N LMP Definite Hormone Replacement Therapy N Obstetrics History GPAL:G 5 P 3 0 2 3 Type Value Full Term 3 Spontaneous 2 Living 3 Total 5 Immunizations Vaccine Type Date Status Note Provider Kameron gatica and Address Organization Details Recorded Time Tdap 4 completed Not Available [facility] 04/23/2019 02:21:54 Influenza, split virus, quadrivalent, preservative 7 completed Mitch Painter, RN [address], [place], [address], [place] - [facility] 12/31/2016 10:55:11 Influenza, split virus, quadrivalent, preservative 8 completed Petra Mary Alice null, [place] - [facility] 02/03/2018 08:32:13 Influenza, split virus, quadrivalent, preservative 9 completed Petra Mary [place] null, [place] [facility] 02/23/2019 09:34:56 Influenza, split virus, quadrivalent, preservative 1 completed Petra Mary [place] null, [place] - [facility] 07/05/2021 14:02:14 Past Encounters Encounter ID Performer Location Encounter Start Date Encounter Closed Date Diagnosis/Indication Diagnosis SNOMED-CT Code Diagnosis ICD10 Code Diagnosis IMO Codes Diagnosis Note [id number] [facility] [address] [place] [address] 03/28/2014 00:00:00 [id number] [facility] [address] [place] [address] 02/20/2014 00:00:00 [id number] [facility] [address] [place] [address] 06/21/2014 00:00:00 [id number] [facility] [address] [place] [address] 02/27/2014 00:00:00 [id number] [facility] [address] [place] [address] 09/07/2014 00:00:00 [id number] [facility] [address] [place] [address] 01/08/2010 00:00:00 [id number] [facility] [address] [place] [address] 02/08/2010 00:00:00 [id number] [facility] [address] [place] [address] 04/21/2012 00:00:00 [id number] [facility] [address] [place] [address] 02/03/2013 00:00:00 [id number] [facility] [address] [place] [address] 06/23/2013 00:00:00 [id number] [facility] [address] [place] [address] 06/30/2013 00:00:00 [id number] [facility] [address] [place] [address] [address] 02/20/2014 00:00:00 [id number] [facility] [address] [place] [address] 12/22/2007 00:00:00 [id number] [facility] [address] [place] [address] 01/17/2008 00:00:00 [id number] [facility] [address] [place] [address] 04/26/2008 00:00:00 [id number] [facility] [address] [place] [address] 04/02/2009 00:00:00 [id number] [facility] [address] [place] [address] 04/25/2009 00:00:00 [id number] [facility] [address] [place] [address] 05/22/2009 00:00:00 [id number] [facility] [address] [place] [address] 05/22/2009 00:00:00 [id number] [facility] [address] [place] [address] 01/03/2010 00:00:00 [id number] MD Kamla Lenz [employer] [address] [place] [address] [place] [address] 12/31/2016 09:57:44 12/31/2016 14:35:34 Gynecologic examination 49532440 Z01.419 Depression screening 171 609788 Z13.89 Hypertensi on screening 830649481 Z13.6 Patient currently is within goal of less than 140/90. We will rescreen at annual visit, sooner if needed Exercises education, guidance, and counseling 231789372 Z71.89 Advise 30 minutes 3 times a week at a minimum of purposeful exercise. Patient is not currently meeting this goal. Body mass index 25-29 - overweight 428885728 Z68.26 Dysmenorrhea 202872368 N 94.6 Suppressed on current pills Menorrhagia 866535807 N9 2.0 Flow decreased on current pills but would prefer noncyclic trial Nicotine dependence 5629 4008 F17.200 Contracept ion care management 574982220 Z30.9 [id number] Leticia Nunez MD [place] [employer] [address] [place] [address] [place] [address] 02/03/2018 08:11:10 02/03/2018 09:56:45 Gynecologic examination 45747819 Z01.419 Depression screening 171 246556 Z13.89 Hypertensi on screening 689637904 Z13.6 Patient currently is within goal of less than 140/90. We will rescreen at annual visit, sooner if needed Exercises education, guidance, and counseling 133738378 Z71.82 Advise 30 minutes 3 times a week at a minimum of purposeful exercise. Patient is currently meeting this goal. Screening for malignant neoplasm of cervix 849669129 Z12.4 Body mass index 25-29 - overweight 091887113 Z68.27 Menorrhagia 290609051 N9 2.0 menorrhagi a resolved with Camrese though complainin g of low libidoDisc ussed options including mirena but declined IUDwill restart ortho cyclen skipping inactive pills, follow up late march Reduced libido 9507521 R 68.82 Reviewed multiple factors involved with libido. Reviewed potential decreased free testostero ne from SHBG production stimulated by any type of oral contracept shaq.. Discussed other non-oral options including IUD. Reviewed option of expectant management without any treatment but would anticipate return to severe cycles. She has memory of use of IUD for almost 5 years leading up to her last child. No mood problems while she was on it, no bleeding while she was on it. Notes occasional cramping while on it but then moods are all messed up when she came off of it. For now desires conversion back to the previous Ortho-Cycl en but continue to use noncyclic and short-term follow-up to see if this is helped. Dysmenorrhea 347986368 N 94.6 Suppressed on current pills [id number] MD Kamla Lenz [employer] [address] [place] [address] [address] [address] 04/12/2018 08:58:25 04/12/2018 10:23:15 Menorrhagia 983443087 N92.0 Menorrhagi a controlled with camreseswi tched to orthocycle n due to decreae libido - after one pack switched back to camrese due to btb Reduced libido 0531105 R 68.82 Discussed multiple issues affecting libido. Patient thinks when she has assessed this at home that is more due to time constraint s and schedule with her and rather than just pills . For now she is pleased with going back to [facility] and staying on pills rather than going back to her baseline menorrhagi a Surveillan ce of oral contraception 077682407 Z30.41 Back to Camrese after brief trial of Ortho-Cycl en with breakthrou gh bleeding. No contraindi cations to ongoing use, currently non-smoker [id number] MD Kamla Lenz [employer] [address] [place] [address] [address] [place] [address] 02/23/2019 08:25:01 02/23/2019 11:17:51 Gynecologic examination 87385989 Z01.419 Cervical cancer screening not due this year, see [facility] Depression screening 171 644025 Z13.89 Hypertensi on screening 553033640 Z13.6 Patient currently is within goal of less than 140/90. We will rescreen at annual visit, sooner if needed Exercises education, guidance, and counseling 488595050 Z71.82 Advise 30 minutes 3 times a week at a minimum of purposeful exercise. Patient is not currently meeting this goal. Menorrhagia 636684154 N9 2.0 Menorrhagi a controlled with camrese-us ing an cyclic manner. 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 If persistent pain and no findings on the above, could consider GI referral. Cannot exclude endometrio sis or adhesions although she states it feels nothing like the prior severe dysmenorrh ea she used to have before OCP use and is not noted during her withdrawal week and currently Surveillan ce of oral contraception 001049293 Z30.41 Back to [facility] after brief trial of Ortho-Cycl en late 2017 with breakthrou gh bleeding. No contraindi cations to ongoing use, currently non-smoker . 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 If persistent pain and no findings on the above, could consider GI referral. Cannot exclude endometrio sis or adhesions although she states it feels nothing like the prior severe dysmenorrh ea she used to have before OCP use and is not noted during her withdrawal week and currently 12 6 follow-up ultrasound with normal findings [id number] MD Kamla Lenz [employer] [address] [place] [address] [address] [place] [address] 05/23/2020 14:00:21 05/23/2020 15:36:45 Gynecologic examination 54329973 Z01.419 Depression screening 171 709637 Z13.89 Hypertensi on screening 006761216 Z13.6 Patient currently is within goal of less than 140/90. We will rescreen at annual visit, sooner if needed Exercises education, guidance, and counseling 787594287 Z71.82 Advise 30 minutes 3 times a week at a minimum of purposeful exercise. Patient is not currently meeting this goal. Menorrhagia 783063693 N9 2.0 Menorrhagi a controlled with camrese-us ing an cyclic manner. Desires to continue Body mass index 25-29 - overweight 070621201 Z68.28 Urinary ketosis currently noted as she is on appetite suppressan t. Reviewed need forPlan for long-term diet management when she decreases this Break-thro ugh bleeding 75338153 N92.1 Vaginal irritation 09387 6004 N89.8 Screening for malignant neoplasm of cervix 182970615 Z12.4 Surveillan ce of oral contraception 737771088 Z30.41 Remains on camrese and cyclic manner with mild breakthrou gh bleeding no contraindi cations to ongoing use, currently non-smoker . Being used for noncontrac eptive benefit of cycle control, history of tubal ligation for primary contracept ion Tachycardia 2917620 R00. 0 Borderline 100-1 10. Suspect from current appetite stimulant treatment. Advise follow-up with PCP if not improving with appetite stimulant removed. not symptomati c Vaccine de clined by patient 2945682944 02 Z28.21 refuses covid Past pregn trinity history of gestational diabetes mellitus 492477812 Z86.32 with 2013 ;last 2hr check 2014; advise recheck [id number] MD Kamla Lenz [employer] [address] [place] [address] 07/05/2021 13:27:43 07/05/2021 15:12:16 Gynecologic examination 77717913 Z01.419 Cervical cancer screening not due this year, see [facility] Depression screening 171 945215 Z13.89 Hypertensi on screening 816601207 Z13.6 Patient currently iswithin goal of less than 140/90. We will rescreen at annual visit, sooner if needed Exercises education, guidance, and counseling 521212983 Z71.82 Advise 30 minutes 3 times a week at a minimum of purposeful exercise. Patient is not currently meeting this goal. Body mass index 25-29 - overweight 996471851 Z68.27 Menorrhagia 361540235 N9 2.0 Menorrhagi a controlled with camrese-us ing an cyclic manner. Desires to continue Past pregn trinity history of gestational diabetes mellitus 872929171 Z86.32 overdue for dm screen [id number] [facility] [address] [address] 10/11/2021 11:35:05 10/11/2021 13:27:55 Body mass index 25-29 - overweight 119238880 Z68.27 Gastroesop hageal reflux disease 465813118 K21.9 Past pregn trinity history of gestational diabetes mellitus 567573464 Z86.32 diet and exercise discussed with pt, Long-term drug therapy 819431114 Z79.096 [id number] [facility] [address] [address] 10/22/2021 16:23:42 10/22/2021 17:12:46 Disorder of thyroid gland 51130550 E07.9 [id number] [facility] [address] [address] 11/08/2021 12:58:42 11/08/2021 13:27:02 Body mass index 25-29 - overweight 572977563 Z68.27 will hold on sending adipex this month due to no change in wt Gastroesop hageal reflux disease 201424827 K21.9 Past pregn trinity history of gestational diabetes mellitus 214126106 Z86.32 diet and exercise discussed with pt, Seasonal a llergic rhinitis 341515053 J30.2 [id number] [facility] [address] [address] 12/02/2021 10:47:56 12/02/2021 11:59:25 Cough 37186707 R05.1 Acute uppe r respiratory infection 31476094 J06.9 [id number] [facility] [address] [address] 12/06/2021 15:44:38 12/06/2021 16:29:24 Upper respiratory infection 18474350 J06.9 no sign of a bacterial infection. likely viral. viruses can take 7-14 days to run their course. nasal saline and bulb syringe to remove nasal drainage to help with congestion . monitor temp. Tylenol or Motrin as needed for pain or fever. encourage fluids, water, Gatorade, power aide, Pedialyte if infant/tod dler/child warm salt water gargles warm fluids sore throat lozenges sleep elevated humidifier /vaporizer follow up immediatel y for new or worsening symptoms or no noticeable improvemen t over the next 48-72 hours [id number] [facility] [address] 12/16/2021 15:50:52 12/16/2021 16:45:38 Acute bronchitis 35896826 J20.9 Acute maxi llary sinusitis 00243288 J01.00 [id number] [facility] [address] 02/25/2022 13:45:59 02/25/2022 14:44:08 Influenza caused by Influenza A virus 211936652 J09.X2 no sign of a bacterial infection. likely viral. viruses can take 7-14 days to run their course. nasal saline and bulb syringe to remove nasal drainage to help with congestion . monitor temp. Tylenol or Motrin as needed for pain or fever. encourage fluids, water, Gatorade, power aide, Pedialyte if infant/tod dler/child warm salt water gargles warm fluids sore throat lozenges sleep elevated humidifier /vaporizer follow up immediatel y for new or worsening symptoms or no noticeable improvemen t over the next 48-72 hours [id number] [facility] [address] [address] 06/06/2022 15:13:43 06/06/2022 16:01:21 Neck pain 33983951 M54.2 Gastroesop hageal reflux disease 983425828 K21.9 Muscle tension pain 2790 98850 M79.10 Otitis externa 5131260 H 60.93 [id number] [facility] [address] [address] 08/25/2022 10:45:43 08/25/2022 11:38:43 Body mass index 25-29 - overweight 128626775 Z68.27 bmi 27.4-bloat ing and increase in gerd. will give one month of adipex. pt states the extra weight causes her hernia and gerd to flare causingkas per viewed and appropriat e Gastroesop hageal reflux disease 760963747 K21.9 Past pregn trinity history of gestational diabetes mellitus 530850490 Z86.32 diet and exercise discussed with pt, Hernia of abdominal cavity 74915051 K46.9 [id number] [facility] [address] [address] 09/22/2022 09:11:05 09/22/2022 10:03:57 Body mass index 25-29 - overweight 086935136 Z68.27 continue diet and exercise plan Seasonal a llergic rhinitis 173318168 J30.2 [id number] Brandon Burnett [address] [address] 10/03/2022 13:30:29 10/03/2022 14:20:48 Acute urinary tract infection 724983544 N39.0 N30.91 [id number] [facility] [address] [address] 03/24/2023 12:55:00 03/24/2023 14:08:29 Exposure to SARS-CoV-2 206888905 Z20.822 Body mass index 25-29 - overweight 508793960 Z68.27 27.6 Overweight 689168279 E66 .3 at this time does not meet criteria for adipex Gastroesop hageal reflux disease 514329889 K21.9 Seasonal a llergic rhinitis 875433764 J30.2 [id number] [facility] [address] [address] 05/12/2023 15:35:13 05/12/2023 16:19:46 Body mass index 30+ - obesity 161522782 Z68.30 discusses low fat/calori e/carb diet and exercise Chronic neck pain 953808 2809 107 M54.2 [id number] [facility] [address] [address] 05/15/2023 09:06:03 05/15/2023 10:05:58 Low back strain 571836847 S39.012A rotate heat and icemuscle relaxer at bedtime'mo milton as neededretu rn if symptoms worsen or no improvemen t [id number] [facility] [address] [address] 08/25/2023 17:30:52 08/25/2023 18:39:26 Anxiety [id number] F41.9 Discussed with patient feelings of anxiety and medication options along with therapy. Patient said she would think about it and let the office know.if any thoughts or issues she can not control go to ed neal [id number] [facility] [address] [address] 02/09/2024 17:28:54 02/09/2024 18:18:03 Body mass index 30+ - obesity 022667424 Z68.30 discusses low fat/calori e/carb diet and exercisePt compliant with plan of careKasper reviewedme dication compliance discussedL ast uds:Control substance agreement on file Obesity 939595464 E66.9 Long-term drug therapy 748445758 Z79.899 Gastroesop hageal reflux disease 229811426 K21.9 Hyperlipidemia 44365235 E78.5 Hypothyroidism 99721067 E03.9 [id number] [facility] [address] [address] 03/08/2024 17:07:46 03/08/2024 18:09:14 Body mass index 30+ - obesity 307681312 Z68.30 discusses low fat/calori e/carb diet and exercisePt compliant with plan of careKasper reviewedme dication compliance discussedL ast uds:Control substance agreement on file Body mass index 25-29 - overweight 538902729 Z68.28 28.5 Hyperlipidemia 02921535 E78.5 Hypothyroidism 88548574 E03.9 [id number] [facility] [address] [address] 04/05/2024 17:14:49 04/05/2024 18:33:01 Body mass index 30+ - obesity 821088575 Z68.30 discusses low fat/calori e/carb diet and exercisePt compliant with plan of careKasper reviewedme dication compliance discussedL ast uds:Control substance agreement on file Chronic neck pain 712649 2012 107 M54.2 Gastroesop hageal reflux disease 892462114 K21.9 Hyperlipidemia 50373071 E78.5 Hypothyroidism 20913665 E03.9 [id number] [facility] [address] [address] 05/10/2024 17:17:56 05/10/2024 17:58:39 Gastroesophageal reflux disease 439975181 K21.9 Seasonal a llergic rhinitis 636271056 J30.2 Body mass index 30+ - obesity 503038438 Z68.30 discusses low fat/calori e/carb diet and exercisePt compliant with plan of careKasper reviewedme dication compliance discussedL ast uds:Control substance agreement on filehold adipex this month due to wt gain [id number] [facility] [address] [address] 06/07/2024 17:40:48 06/07/2024 18:23:55 Body mass index 30+ - obesity 520742525 Z68.30 bmi27.6 Low back strain 17682945 1 S39.012A rotate heat and icemuscle relaxer at bedtime- do not take if taken adipex'mot rin as neededretu rn if symptoms worsen or no improvemen t Chronic neck pain 722853 2528 107 M54.2 Hyperlipidemia 21322946 E78.5 Hypothyroidism 86862277 E03.9 Obesity 050001737 E66.9 discusses low fat/calori e/carb diet and exercisePt compliant with plan of Chuck reviewedme dication compliance discussedL ast uds:Control substance agreement on filedue to pt comobility s will continue adipex [id number] [facility] APRN [address] [address] 07/05/2024 17:27:43 07/05/2024 18:01:51 Body mass index 30+ - obesity 096689603 Z68.30 bmi 27.3last month has reached bmi goaluds 02/09/24lo w carb/fat/c alorie diet Chronic neck pain 698008 1523 107 M54.2 G89.29 691289 do not take with adipex Health Concerns Section Related Observation LastModified by Organization Detai ls LastModified Time None Recorded Concern Status LastModified by Organization Details LastModified Time None Recorded Advance Directives Directive N: Payers Insurance Date Sequence Insurance Name Policy Number Policy Phipps Covered Member ID Phipps Member ID Guarantor Name 06/06/2022 2 [facility] [id number] Abebe Maria [id number] Abebe Maria 08/17/2024 1 [facility] [id number] Abebe Maria [id number] Abebe Maria 06/06/2022 1 [employer] [id number] Mariano Maria [id number] Abebe Maria 10/08/2021 1 [facility] [id number] Abebe Maria [id number] Abebe Maria Notes Date Note Type Note Provider Name and Address Organization Details Recorded Time 03/08/2024 text/html 38 yr old female presents to follow up on weight loss. down 9 lbs. pt states she is doing well on meds with diet and exercise Duncan Bar APRN [address], [place], [address], [place] - [facility] 03/08/2024 18:07:12 04/05/2024 text/html 38 yr old female presents for a weight loss follow up. down just over a pound and half.had labs for thyroid and choles done in nov Duncan [facility] APRN [address], [place], [address], [place] - [facility] 04/05/2024 18:20:14 05/10/2024 text/html ROS as noted in the HPI 38 yr old female presents for a weight loss follow up. She hasn't taken the adipex for 3 weeks. Duncan Bar APRN [address], [place], [address], [place] - [facility] 05/10/2024 17:57:48 06/07/2024 text/html ROS as noted in the HPI 39 yr old female presents for a weight loss follow up.was 174.8 last visit 166 today. pt states doing well on meds with diet and exercise.She would also like to have a refill on flexeril . Duncan Bar APRN [address], [place], [address], [place] - [facility] 06/07/2024 18:27:01 07/05/2024 text/html ROS as noted in the HPI 39 yr old female presents for a weight loss follow up. down 2 lbs Duncan Bar APRN [address], [place], [address], [place] - [facility] 07/05/2024 18:04:18 OBGyn Episode No OBEpisode recorded.
--- NOTE | 2025-03-13 07:45 | CT_ITS ---
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 A noncontrast coronary calcium scan was performed. A CT attenuation threshold of 130 Hounsfield units (HU) was used for the detection of calcium in contiguous voxels of 1 sq mm in area to be counted as individual lesions. A tube voltage of 120 KVp was used. The patient received no medications prior to the coronary calcium CT. Image Reconstruction Transaxial images were reconstructed at 0.67 mm slide thickness. Data was reviewed interactively on an advanced workstation capable of 2 and 3-dimensional displays in all conventional reconstruction formats, including multiplanar reformations, maximum intensity projections, curved multiplanar reformations, and volume rendered reconstructions. When applicable, selected routine images describing the relevant coronary anatomy and pathology were saved and sent to PACS. Complications None Technical Quality Overall image quality was good. Total DLP (Dose-Length Product) is 169 mGy-cm. The reported value represents the total of one or more individual components during the CT acquisition of this date and at this time, and as such, the same value may appear in more than one CT report depending on the interpreting/reporting physicians. COMPARISON None FINDINGS CT Coronary Calcium Scoring LMA (Left Main Artery) = 0 LAD (Left Anterior Descending) = 0 LCX (Left Coronary Circumflex) = 0 RCA (Right Coronary Artery) = 0 Total Calcium Score = 0 using the AJ-130 method. There is no identifiable calcification in the aortic valve, mitral annulus or mitral valve, pericardium, or myocardium. IMPRESSION -Coronary artery calcification is absent. -Total Calcium Score (Agatston Score) = 0 using the AJ-130 method. The interpretation of the calcium heart score is based on the following continuum*: 0 = no calcified plaque detected (risk of coronary artery disease is very low ??? less than 5%) 1-10 = calcium detected in extremely minimal levels (risk of coronary diseases is still low ??? less than 10%) 11-100 = mild levels of plaque detected with certainty (mild or minimal narrowing of heart arteries is likely) 101-400 = definite,at least moderate levels of plaque detected (relatively high risk of a heart attack within 3-5 years) >401-999 = extensive levels of plaque detected (high risk of heart attack, high levels of vascular disease are present, high likelihood of at least one significant coronary narrowing) *The calcium heart score quantifies the burden of coronary calcification/plaque in the coronary arteries. The calcium heart score does not evaluate the presence or the burden of non-calcified (i.e. soft) plaque. The coronary and cardiac findings of this Coronary Calcium CT were reviewed, reported, and signed by Rene Angeles MD (Community Health Nurse Supervisor). Conclusion Electronically signed by : Wanda Angeles MD 03/17/2025 07:40:03
== END 2025-03-13 23:59 | disposition home or self-care (01) ==
PROVIDERS: PCP Nurse Practitioner Family; Visit Provider Physician Assistant
DX: I70.90 Unspecified atherosclerosis (principal); E78.49 Other hyperlipidemia; Z82.49 Family history of ischemic heart disease and other diseases of the circulatory system
CPT/HCPCS: 75571